=== PATIENT | male | born 1965 | race African-American/Black ===

== ENCOUNTER 2021-10-16 22:48 | Emergency (ER) | payer MEDICARE, SELFPAY ==
--- NOTE | 2021-10-16 22:56 | ED.MALEGU ---
HPI - Male Genitourinary General Chief complaint: Urogenital-Male Stated complaint: bladder infection Time Seen by Provider: 10/16/21 22:56 Source: patient History of Present Illness HPI Narrative: 55-year-old male with a history of Friedreich's ataxia with ataxia, leg weakness, distal sensory loss, decreased vision and hearing presents to the ER with a 2 week history of -- urinary retention with dribbling, incontinence, precipitating and hesitancy. for the past 1 day he has not been able to pass urine freely. -- Suprapubic pain. No fever. Onset (ago): day(s) ( Increased retention of urine is noted for the past 2 days) Relieving factors: none Exacerbating factors: none Related Data Home Medications Medication Instructions Recorded Confirmed No Home Medications 10/16/21 10/16/21 Allergies Allergy/AdvReac Type Severity Reaction Status Date / Time codeine Allergy Unknown Verified 10/16/21 23:07 Review of Systems Review of Systems: All systems reviewed & are unremarkable except as noted in HPI and below Constitutional: Constitutional: Reports as per HPI and Reports no additional constitutional complaints Eyes: Eyes: Reports as per HPI and Reports no additional eye complaints ENT: Reports system reviewed and no additional complaints, except as documented and Reports as per HPI Cardiovascular: Cardiovascular: Reports as per HPI and Reports no additional cardiovascular complaints Respiratory: Respiratory: Reports as per HPI and Reports no additional respiratory complaints Gastrointestinal: Gastrointestinal: Reports as per HPI and Reports no additional gastrointestinal complaints Genitourinary: Genitourinary: Reports oliguria, Reports urinary frequency, Reports urinary hesitancy and Reports other ( retention of urine) Musculoskeletal: Musculoskeletal: Reports no additional musculoskeletal complaints and Reports as per HPI Integumentary/Breasts: Skin/Breast: Reports system reviewed and no additional complaints, except as docu and Reports as per HPI Neurologic: Reports system reviewed and no additional complaints, except as documented, Reports dizziness, Reports frequent falls, Reports lack of coordination, Reports loss of vision, Reports restless legs, Reports Sensory deficit (Neuro), Reports tremor(s) and Reports disequilibrium Psychiatric: Psychiatric: Reports no additional psychiatric complaints Endocrine: Endocrine: Reports no additional endocrine complaints Hematologic/Lymphatic: Hematologic/Lymphatic: Reports no additional hematologic/lymphatic complaints Allergic/Immunologic: Allergic/Immunologic: Reports no additional allergic/immunologic complaints [facility] Family History Family History (Updated 10/16/21 @ 23:30 by Denys Stone MD) Other Friedreich disease Exam Const: General: cooperative, healthy appearing, anxious, tired appearing and uncomfortable HENMT: Head: normal to inspection, No palpable skull fracture present and normocephalic Ears: other ( decreased hearing) General nose exam: Normal external nose present, Normal nares present and Abnormal external nose present Face and sinus: normal facial exam Mouth: Yes Normal oral and palatal mucosa present Teeth and gingiva: dentition normal Throat: posterior oropharynx normal Eyes: General: appearance normal, both eyes and all related structures Eyelids: eyelids normal Conjunctivae: conjunctivae normal Sclera: sclerae normal Cornea: corneas normal Pupils: Equal, round and reactive pupils present Neck: Neck: normal visual inspection and full ROM Chest: Chest palpation & inspection: normal inspection of the chest and normal palpation of entire chest wall Resp: Effort & Inspection: normal respiratory effort and able to speak in complete sentences Auscultation: clear to auscultation bilaterally Cardio: Jugular venous distension: no JVD Rate: regular rate Rhythm: regular rhythm Heart sounds: S1 normal heart sound present and S2
[2021-10-16 23:00] VITALS: BP 143/89; PULSE 89; RESP 20; TEMP 36.6; O2SAT 98
[2021-10-16 23:41] LABS: Basophils Absolute Auto 0.02 K/mm3 (0.00-0.10); Basophils Percent Auto 0.2 % (0.0-1.0); Eosinophils Absolute Auto 0.02 K/mm3 (0.02-0.50); Eosinophils Percent Auto 0.2 % (1.0-6.0); Hematocrit 43.5 % (40.0-54.0); Hemoglobin 14.7 g/dL (14.0-18.0); Immature Granulocyte Absolute 0.03 K/mm3 (0.00-0.00); Immature Granulocyte Percent A 0.3 % (0.0-0.0); Lymphocytes Percent Auto 11.5 % (18.0-42.0); Mean Corpuscular HGB Conc 33.8 g/dL (32.0-36.0); Mean Corpuscular Hemoglobin 29.4 pg (27.0-31.0); Mean Platelet Volume 9.4 fl (8.7-11.0); Monocytes Absolute Auto 0.75 K/mm3 (0.10-0.90); Monocytes Percent Auto 7.2 % (2.0-11.0); Neutrophils Absolute Auto 8.4 K/mm3 (1.7-7.2); Neutrophils Percent Auto 80.6 % (50.0-70.0); Platelet Count Result 263 K/mm3 (150-420); White Blood Count 10.5 K/mm3 (4.8-10.8)
[2021-10-16 23:42] LABS: Add Urine Microscopic? YES; Appearance Urine Clear (Clear); Bilirubin Urine Negative (Negative); Blood Urine 1+ (Negative); Color Urine Light Yellow (Yellow); Glucose Urine UA Negative (Negative); Ketones Urine Negative (Negative); Leukocyte Esterase Ur Negative (Negative); Nitrate Urine Negative (Negative); Protein Urine Negative (Negative); Specific Grav Ur <= 1.005 (1.010-1.020); Urobilinogen Urine 0.2 mg/dL (0.2-1.0)
[2021-10-16 23:49] LABS: RBC Urine None seen /hpf (0-2)
[2021-10-17] LABS: Lactic Acid Reflex 1.6 mmol/L (0.4-2.0)
[2021-10-17 00:04] LABS: Alanine Aminotransferase 43 U/L (16-63); Albumin Level 4.3 g/dL (3.4-5.0); Alkaline Phosphatase 55 U/L (46-116); Anion Gap 11 mmol/L (8-16); Aspartate Amino Transferase 40 U/L (15-37); Bilirubin,Total 0.6 mg/dL (0.00-1.00); Blood Urea Nitrogen 14 mg/dL (7-18); Calcium 8.7 mg/dL (8.5-10.1); Carbon Dioxide 26 mmol/L (21-32); Chloride 101 mmol/L (98-108); Estimated CRCL calculation 75 ml/min; Estimated Glomerular Filt Rate > 60; Glucose 127 mg/dL (70-99); Lipase 63 U/L (73-393); Osmolality Calculated 288 mOsm/kg (285-295); Potassium 3.3 mmol/L (3.5-5.1); Sodium 138 mmol/L (136-145); Total Protein 7.6 g/dL (6.4-8.2)
[2021-10-17 00:07] LABS: NT Pro B Type Natriuretic Pept 46 pg/mL (0-125); Troponin I 6.7 ng/L (0.00-60.4); Uric Acid 5.9 mg/dL (3.5-7.2)
[2021-10-17] MEDS: POTASSIUM CHLORIDE 20 MEQ TABLET PO (00:17)
[2021-10-17 00:42] VITALS: BP 138/85; PULSE 80; RESP 18; TEMP 36.6; O2SAT 97
== END 2021-10-17 00:45 | disposition home or self-care (01) ==
PROVIDERS: Emergency Provider Internal Medicine Critical Care Medicine; PCP Internal Medicine
DX: G11.11 Friedreich ataxia (principal); R33.9 Retention of urine, unspecified; E87.6 Hypokalemia
CPT/HCPCS: 36415; 80053; 81001; 83605; 83690; 83880; 84484; 84550; 85025; 99284; A9270

== ENCOUNTER 2022-01-04 17:56 | Emergency (ER) | payer MEDICARE, SELFPAY ==
--- NOTE | ~2022-01-04 | CT_ITS ---
EXAMINATION: CT abdomen pelvis wo con DATE: 01/04/2022 20:44 INDICATION: left flank pain X today TECHNIQUE: Computed tomography (CT) of the abdomen and pelvis was performed without intravenous contr ast. Automated exposure control and iterative reconstruction technique were employed. The dose-length product was 255.20 mGy-cm. COMPARISON: None. FINDINGS: Lower thorax: Unremarkable Liver: Multiple low-density lesions likely represent cysts or hemangiomas. Biliary/Gallbladder: Gallbladder is normal. No bile duct dilation. Pancreas: No mass or duct dilation. Spleen: Normal. Adrenals:No mass. Kidneys: No mass, stone, or hydronephrosis. GI tract: No small or large bowel dilation. Appendix not visualized. Mesentery/Peritoneum: No ascites, mass, or free air. Paucity of abdominal fat. Retroperitoneum: No mass. Pelvis: Bladder wall thickening, likely secondary to chronic outlet obstruction from prostatomegaly. Soft Tissues: Soft tissues and body wall unremarkable. Bones: Degenerative changes. IMPRESSION: No acute abdominopelvic process. Specifically there is no evidence of left nephrolithiasis or obstruc tive uropathy. Reviewed, dictated and finalized at location K. IMPRESSION: No acute abdominopelvic process. Specifically there is no evidence of left neph rolithiasis or obstructive uropathy.
--- NOTE | 2022-01-04 18:15 | ED.ABDPAIN ---
HPI - Abdominal Pain General Chief Complaint: Urogenital-Male Stated Complaint: kidneys,pinched nerve left arm Source: patient and RN notes reviewed Mode of arrival: ambulatory ( with walker) Limitations: no limitations History of Present Illness MD elicited complaint: flank pain Pertinent past history: none Onset (ago): hour(s) (8) Pain Consistency: constant Location: L flank Severity: moderate Quality: cramping and stabbing Radiation: none Migration to: no migration Exacerbating factors: nothing Relieving factors: nothing Associated symptoms: denies other symptoms Related Data Home Medications Medication Instructions Recorded Confirmed tamsulosin 0.4 mg capsule 1 cap PO DAILY 01/04/22 01/04/22 Allergies Allergy/AdvReac Type Severity Reaction Status Date / Time codeine Allergy Unknown Verified 01/04/22 18:16 Review of Systems Review of Systems: All systems reviewed & are unremarkable except as noted in HPI and below Constitutional: Constitutional: Denies chills and Denies fever(s) Gastrointestinal: Gastrointestinal: Denies nausea and Denies vomiting PMFSH Past Medical History Medical History (Updated 01/04/22 @ 21:09 by Mikey Whittaker MD) Friedreich ataxia Surgical History Surgical History No pertinent past surgical history Family History Family History (System 10/20/21 @ 15:13 by Natalia Sheets) Other Friedreich disease Social History Social History (Updated 01/04/22 @ 18:16 by Mikey Whittaker MD) Smoking status: Never smoker Substance use: current Substance use type: marijuana Exam Const: General: healthy appearing, no acute distress and alert Nutritional Appearance: well nourished Orientation/consciousness: patient oriented x3 HENMT: Head: normal to inspection Ears: external ears normal Eyes: Conjunctivae: conjunctivae normal Pupils: Equal, round and reactive pupils present EOM: EOMs intact bilaterally Neck: Neck: normal visual inspection Resp: Effort & Inspection: normal respiratory effort Auscultation: clear to auscultation bilaterally Cardio: Rate: regular rate Rhythm: regular rhythm GI: GI Palp: Yes Soft to palpation and No Tenderness to palpation present (GI) Auscultation: normal bowel sounds Back/Spine/Pelvis: Back: CVA tenderness (left) Cervical Spine: cervical ROM normal Thoracic/Lumbar Spine: thoraco-lumbar ROM normal Skin: General skin exam: normal color Rashes: no rashes Neuro: General: patient oriented x3, moves all extremities, no focal motor deficits and CN's II-XI intact bilaterally Speech: normal speech Extrem: General: normal to inspection and no clubbing, cyanosis or edema Psych: Mental Status: mental status grossly normal Affect: normal affect Attitude: cooperative Course Vital Signs Vital signs: Vital Signs Temperature 36.9 C 01/04/22 18:16 Pulse Rate 98 01/04/22 18:16 Respiratory Rate 16 01/04/22 18:16 Blood Pressure 151/86 H 01/04/22 18:16 Pulse Oximetry 98 01/04/22 18:16 Oxygen Delivery Room Air 01/04/22 18:16 Temperature 36.4 C L 01/04/22 21:24 Pulse Rate 75 01/04/22 21:24 Respiratory Rate 16 01/04/22 21:24 Blood Pressure 143/101 H 01/04/22 21:24 Pulse Oximetry 100 01/04/22 21:24 Oxygen Delivery Room Air 01/04/22 21:24 MDM - Abdominal Pain MDM Narrative Medical decision making narrative: I considered UTI, kidney stone, musculoskeletal pain, other abdominal etiology. CT scan shows no abdominal etiology specifically no kidney stone. He had to be straight cathed for his urine and that is the most likely source of his mild hematuria Lab Data Attestation: I reviewed the patient's lab results. Result diagrams: 01/04/22 18:36 01/04/22 18:36 Labs: Lab Results 01/04/22 01/04/22 01/04/22 Range/Units 18:36 18:36 20:12 WBC 5.2 (4.8-10.8) K/mm3 RBC 4.79 (4.70-6.10) M/mm3 Hgb 1
[2022-01-04 18:16] VITALS: BP 151/86; PULSE 98; RESP 16; TEMP 36.9; O2SAT 98
[2022-01-04 18:40] LABS: Basophils Absolute Auto 0.03 K/mm3 (0.00-0.10); Basophils Percent Auto 0.6 % (0.0-1.0); Eosinophils Absolute Auto 0.03 K/mm3 (0.02-0.50); Eosinophils Percent Auto 0.6 % (1.0-6.0); Hematocrit 42.1 % (40.0-54.0); Immature Granulocyte Absolute 0.02 K/mm3 (0.00-0.00); Immature Granulocyte Percent A 0.4 % (0.0-0.0); Lymphocytes Absolute Auto 1.82 K/mm3 (1.10-4.50); Lymphocytes Percent Auto 35.3 % (18.0-42.0); Mean Corpuscular HGB Conc 33.3 g/dL (32.0-36.0); Mean Corpuscular Hemoglobin 29.2 pg (27.0-31.0); Mean Corpuscular Volume 87.9 fL (78.0-102.0); Mean Platelet Volume 9.4 fl (8.7-11.0); Monocytes Absolute Auto 0.47 K/mm3 (0.10-0.90); Monocytes Percent Auto 9.1 % (2.0-11.0); Neutrophils Absolute Auto 2.8 K/mm3 (1.7-7.2); Platelet Count Result 251 K/mm3 (150-420); Red Blood Count 4.79 M/mm3 (4.70-6.10); White Blood Count 5.2 K/mm3 (4.8-10.8)
[2022-01-04] MEDS: KETOROLAC 30 MG/ML VIAL (*BKC) IM (18:40)
--- NOTE | 2022-01-04 18:54 | PC.NURSE ---
patient provided more water to help urinate.
[2022-01-04 18:55] LABS: Alanine Aminotransferase 46 U/L (16-63); Albumin Level 3.9 g/dL (3.4-5.0); Alkaline Phosphatase 58 U/L (46-116); Anion Gap 4 mmol/L (8-16); Aspartate Amino Transferase 49 U/L (15-37); Bilirubin,Total 0.4 mg/dL (0.00-1.00); Blood Urea Nitrogen 15 mg/dL (7-18); Calcium 8.7 mg/dL (8.5-10.1); Carbon Dioxide 31 mmol/L (21-32); Chloride 104 mmol/L (98-108); Estimated Glomerular Filt Rate > 60; Glucose 83 mg/dL (70-99); Osmolality Calculated 287 mOsm/kg (285-295); Potassium 3.8 mmol/L (3.5-5.1); Sodium 139 mmol/L (136-145); Total Protein 7.3 g/dL (6.4-8.2)
[2022-01-04 19:06] LABS: CRP < 0.2 mg/dL (0.0-0.9)
--- NOTE | 2022-01-04 19:22 | PC.NURSE ---
pt unable to provide a urine sample at this time. pt has water and states that he will keep trying. this staff member informed the patient that a straight catheterization procedure can be used to obtain a urine sample. pt stated, no catheters. i don't want it. Savaged updated.
--- NOTE | 2022-01-04 19:51 | PC.NURSE ---
pt stated that he is okay to be straight catheterization in order to obtain a urine sample.
[2022-01-04 20:01] VITALS: BP 147/88; PULSE 89; RESP 16; O2SAT 100
[2022-01-04 20:14] LABS: Appearance Urine Clear (Clear); Bilirubin Urine Negative (Negative); Color Urine Yellow (Yellow); Glucose Urine UA Negative (Negative); Ketones Urine Negative (Negative); Leukocyte Esterase Ur Negative LEU/UL (Negative); Nitrate Urine Negative (Negative); Protein Urine Negative (Negative)
--- NOTE | 2022-01-04 20:14 | PC.NURSE ---
pt straight catheterized, pt tolerated well, urine sent to lab, output charted and procedure charted.
[2022-01-04 20:20] LABS: Add Urine Microscopic? YES; Bacteria Urine Trace /hpf; Blood Urine Trace-Intact (Negative); Other Sediment Urine Spermatazoa /hpf; Squamous Epithelial Cell Urine None seen /hpf (Few); WBC Urine 0-3 /hpf (0-3)
[2022-01-04 21:24] VITALS: BP 143/101; PULSE 75; RESP 16; TEMP 36.4; O2SAT 100
== END 2022-01-04 21:26 | disposition home or self-care (01) ==
PROVIDERS: Emergency Provider Emergency Medicine; PCP Internal Medicine
DX: R10.9 Unspecified abdominal pain (principal)
CPT/HCPCS: 36415; 51701; 74176; 80053; 81001; 85025; 86140; 96372; 99284; J1885

== ENCOUNTER 2022-05-28 18:07 | Observation (INO) | payer MEDICARE, SELFPAY ==
[2022-05-28] VITALS (11 sets, daily range): BP systolic 124–162; BP diastolic 76–105; PULSE 88–111; RESP 17–27; TEMP 36.7; O2SAT 93–100; BMI 20.9
--- NOTE | ~2022-05-28 | CT_ITS ---
EXAMINATION: CT abdomen pelvis wo con DATE: 05/28/2022 19:14 INDICATION: Right lower quadrant abdominal pain. TECHNIQUE: Computed tomography (CT) of the abdomen and pelvis was performed without intravenous contr ast. Automated exposure control and iterative reconstruction technique were employed. The dose-length product was 264.43 mGy-cm. COMPARISON: CT abdomen and pelvis 01/04/2022 FINDINGS: The visualized portions of the lung bases are clear without pneumonia or pleural effusion. The heart size is normal. No pericardial effusion. There is mild elevation of left hemidiaphragm. The re are cysts in the liver measuring up to 11 mm. The gallbladder, spleen, pancreas, adrenal glands, a nd kidneys are normal. There is no urolithiasis. There are no dilated loops of bowel. The appendix is not visualized. There are no pathologically enlarged lymph nodes. There is no free intraperitoneal f luid. There is severe lumbar spondylosis. IMPRESSION: 1. No etiology for the patient's symptoms. Reviewed, dictated and finalized at location A. IO MANAGER
--- NOTE | ~2022-05-28 | XR_ITS ---
EXAMINATION: XR chest 1V portable DATE: 05/28/2022 19:18 INDICATION: Shortness of breath. TECHNIQUE: A single frontal view of the chest was obtained. COMPARISON: CT abdomen and pelvis 05/28/2022 FINDINGS: The chest demonstrates clear lungs without pneumonia, pleural effusion, or pneumothorax. Th e heart size is normal. IMPRESSION: 1. No acute cardiopulmonary disease. Reviewed, dictated and finalized at location A. OL CAFETERIA COOK HEAD
--- NOTE | ~2022-05-28 | CT_ITS ---
EXAMINATION: CT brain wo con DATE: 05/28/2022 19:14 INDICATION: Tremors. TECHNIQUE: Computed tomography (CT) of the head was performed without intravenous contrast. The mA wa s adjusted according to patient size. Iterative reconstruction technique was employed. The dose-lengt h product was 605.33 mGy-cm. COMPARISON: None FINDINGS: There is no intracranial hemorrhage, acute infarction, or abnormal intracranial mass lesion . The ventricles are normal in size. The orbits are normal. There is mild mucosal thickening in the p aranasal sinuses. The mastoid air cells are normal. IMPRESSION: 1. Normal brain. Reviewed, dictated and finalized at location A. TESTAMENT PROFESSOR IMPRESSION: 1. Normal brain.
--- NOTE | 2022-05-28 18:16 | ECG_ITS ---
Measurements Intervals [place] Rate: 98 P: 74 WV: 133 QRS: 60 QRSD: 72 T: 39 QT: 326 QTc: 417 Interpretive Statements PROBABLY SINUS RHYTHM (SIGNIFICANT BASELINE ARTIFACT) POSSIBLE LEFT ATRIAL ENLARGEMENT BASELINE ARTIFACT- I, II, III, AVR, AVL, AVF, V1-V6 BORDERLINE ECG NO PREVIOUS ECG AVAILABLE FOR COMPARISON Electronically Signed On 05-29-2022 7:05:24 WEATHERIZATION INSTALLER by Charlie Doe D.O.
[2022-05-28] MEDS: SODIUM CHLORIDE 0.9% IV 1,000 ML 999 ML IV CONT ×2 (18:43→21:19)
[2022-05-28 18:46] LABS: Hematocrit 42.3 % (40.0-54.0); Hemoglobin 14.1 g/dL (14.0-18.0); Mean Corpuscular HGB Conc 33.3 g/dL (32.0-36.0); Mean Platelet Volume 10.1 fl (8.7-11.0); Platelet Count Result 181 K/mm3 (150-420); Red Blood Count 4.86 M/mm3 (4.70-6.10); Red Cell Distribution Width 12.8 % (11.6-14.4); White Blood Count 2.9 K/mm3 (4.8-10.8)
[2022-05-28 19:04] LABS: Lactic Acid Reflex 1.4 mmol/L (0.4-2.0)
--- NOTE | 2022-05-28 19:05 | PC.NURSE ---
PT IS IN CT AT THIS TIME. AND BROTHER AT BEDSIDE. WILL CONTINUE TO MONITOR.
[2022-05-28 19:13] LABS: Alanine Aminotransferase 43 U/L (16-63); Alkaline Phosphatase 54 U/L (46-116); Anion Gap 9 mmol/L (8-16); Aspartate Amino Transferase 45 U/L (15-37); Bilirubin,Total 0.4 mg/dL (0.00-1.00); Blood Urea Nitrogen 14 mg/dL (7-18); Calcium 8.4 mg/dL (8.5-10.1); Carbon Dioxide 29 mmol/L (21-32); Chloride 106 mmol/L (98-108); Estimated CRCL calculation 78 ml/min; Estimated Glomerular Filt Rate > 60; Glucose 89 mg/dL (70-99); Osmolality Calculated 297 mOsm/kg (285-295); Potassium 4.2 mmol/L (3.5-5.1); Sodium 144 mmol/L (136-145); Total Protein 7.7 g/dL (6.4-8.2); Troponin I 8.5 ng/L (0.00-60.4)
[2022-05-28 19:14] LABS: Creatine Kinase 1998 U/L (39-308); Ethanol < 3 mg/dL (0-6)
[2022-05-28 19:20] LABS: Band Neutrophils Percent 0 % (0-6); Eosinophils Percent Manual 0 % (1-6); Lymphocytes Percent Manual 52 % (18-44); Monocytes Percent Manual 14 % (3-9); Neutrophils Absolute Manual 0.98 K/mm3 (1.3-6.7); Neutrophils Percent Manual 34 % (46-73); Total Cells Counted 100
[2022-05-28 19:21] LABS: Basophils Percent Manual 0 % (0-1); Magnesium 1.9 mg/dL (1.8-2.4); Platelet Estimate Adequate (Adequate)
--- NOTE | 2022-05-28 19:53 | PC.NURSE ---
PT REPORTS HE IS FEELING BETTER POST FLUIDS. PT IS SITTING UP TALKING WITH FAMILY, LAUGHING AT THIS TIME. PT IS AWAITING RESULTS. NAD NOTED. FAMILY REMAINS AT BEDSIDE. WILL CONTINUE TO MONITOR.
--- NOTE | 2022-05-28 19:56 | PC.NURSE ---
PT CALLS OUT REPORTING HE IS HOT AND WANTS TO SIT ON SIDE OF STRETCHER, ANXIOUS. PT REPORTS SUDDEN ONSET. SIDE RAIL LET DOWN AT PT REQUEST. ERP IS NOTIFIED. NO ORDERS AT THIS TIME. WILL CONTINUE TO MONITOR.
[2022-05-28 20:18] LABS: Add Urine Microscopic? YES; Appearance Urine Clear (Clear); Bilirubin Urine Negative (Negative); Blood Urine Negative (Negative); Color Urine Yellow (Yellow); Glucose Urine UA Negative (Negative); Ketones Urine Trace (Negative); Leukocyte Esterase Ur Negative (Negative); Nitrate Urine Negative (Negative); Protein Urine Negative (Negative); Urobilinogen Urine 0.2 mg/dL (0.2-1.0)
[2022-05-28 20:23] LABS: Bacteria Urine Trace /hpf; RBC Urine 0-2 /hpf (0-2); WBC Urine 0-3 /hpf (0-3)
[2022-05-28 20:25] LABS: Amphetamine Screen Urine Negative (Negative); Barbiturate Screen Urine Negative (Negative); Benzodiazepines Screen Urine Negative (Negative); Cannabinoid Screen Urine Positive (Negative); Cocaine Screen Urine Negative (Negative); Methadone Screen Urine Negative (Negative); Opiate Screen Urine Negative (Negative); Phencyclidine Screen Urine Negative (Negative)
[2022-05-28] MEDS: LORazepam (*CRX) 0.5 MG TABLET PO (21:16)
--- NOTE | 2022-05-28 22:47 | PC.NURSE ---
PT IS GOING TO BE ADMITTED TO 203. PT AND FAMILY AWARE OF PLAN OF CARE. WILL CONTINUE TO MONITOR.
--- NOTE | 2022-05-28 23:01 | ED.GENADULT ---
HPI - General Adult General Chief complaint: Anxiety Stated complaint: ambulance Time Seen by Provider: 05/28/22 18:08 Source: patient, family, EMS and RN notes reviewed Mode of arrival: EMS Limitations: no limitations History of Present Illness complaint: generalized tremors, pt has Geovanna's ataxia and chronic muscle spasms. Onset (ago): day(s) (2) Location: upper extremity and lower extremity Radiation: non-radiation Severity: moderate Quality: other (spasms) Pain Consistency: other (minimal RLQ pain) Relieving factors: none Exacerbating factors: none Treatments prior to arrival: none Related Data Home Medications Medication Instructions Recorded Confirmed tamsulosin 0.4 mg capsule 1 cap PO DAILY 01/04/22 05/28/22 Allergies Allergy/AdvReac Type Severity Reaction Status Date / Time codeine Allergy Unknown Verified 05/28/22 18:22 Review of Systems Review of Systems: All systems reviewed & are unremarkable except as noted in HPI and below Constitutional: Constitutional: Reports no additional constitutional complaints Eyes: Eyes: Reports no additional eye complaints ENT: Reports system reviewed and no additional complaints, except as documented Cardiovascular: Cardiovascular: Reports no additional cardiovascular complaints Respiratory: Respiratory: Reports no additional respiratory complaints Gastrointestinal: Gastrointestinal: Reports no additional gastrointestinal complaints Musculoskeletal: Musculoskeletal: Reports no additional musculoskeletal complaints Integumentary/Breasts: Skin/Breast: Reports system reviewed and no additional complaints, except as docu Neurologic: Reports system reviewed and no additional complaints, except as documented Psychiatric: Psychiatric: Reports no additional psychiatric complaints Endocrine: Endocrine: Reports no additional endocrine complaints Hematologic/Lymphatic: Hematologic/Lymphatic: Reports no additional hematologic/lymphatic complaints Allergic/Immunologic: Allergic/Immunologic: Reports no additional allergic/immunologic complaints [facility] Past Medical History Medical History Friedreich ataxia Rhabdomyolysis Surgical History Surgical History No pertinent past surgical history Family History Family History Other Friedreich disease Social History Social History Smoking status: Never smoker Second hand tobacco smoke exposure: No Alcohol intake: never Substance use: current Substance use type: marijuana Lack of Transportation: No Lack of Food: Never True Current Housing: I Have Housing Concerned About Future Housing: No Difficulty Paying Gas/Electric Bills: No Difficulty Paying for Meds: No Currently Unemployed: No Education: Associate Degree Difficulty w/ Childcare or Family Care: No Spiritual care concerns: No Exam Const: General: no acute distress and well nourished Nutritional Appearance: well nourished Orientation/consciousness: patient oriented x3 Limitations: no limitations HENMT: Head: normal to inspection Ears: external ears normal, TM's normal bilaterally and EAC's normal Face/Nose/Sinus: Normal external nose present, Normal nares present, normal facial exam and sinuses nontender Face and sinus: normal facial exam and sinuses nontender Mouth: Yes Normal oral and palatal mucosa present and Yes moist mucous membranes Teeth and gingiva: dentition normal Throat: posterior oropharynx normal Eyes: Conjunctivae: conjunctivae normal Pupils: Equal, round and reactive pupils present EOM: EOMs intact bilaterally Neck: Neck: normal visual inspection, no lymphadenopathy and no meningeal signs Chest: Chest palpation & inspection: normal inspection of the chest Resp: Effort & Insp
--- NOTE | 2022-05-28 23:47 | PC.NURSE ---
DELAY IN ADMISSION DUE TO NEEDING IN PT ORDERS
[2022-05-28 23:57] LABS: SARS-CoV-2 RNA PCR Positive (Negative)
[2022-05-29] VITALS: BP 133/83; PULSE 108; RESP 18; TEMP 36.4; O2SAT 97
[2022-05-29] MEDS: SODIUM CHLORIDE 0.9% IV 1,000 ML 150 ML IV CONT ×2 (00:04→07:19)
--- NOTE | 2022-05-29 00:25 | ADMGEN ---
This patient, Cipriano Magallanes, was admitted to 2nd Floor Room 203-2. Patient/family oriented to hospital policies and general routines including ID bracelet, bed and alarms, visiting hours, pain management, procedures, bathroom and other care routines, personal items, smoking policy, room service/diet, and visiting hours. Pt notified of positive covid status and no visitor policy due to positive results, pt is visibly anxious and concerned for possibility of being exposed. Pt is aware he will be getting continuous fluids and that he will need to call for assistance when getting up. Information on how to activate the Rapid Response Team has been discussed. Patient/Family are encouraged to report perceived risks to care and to ask questions if they do not understand what they are told or what they should do.
--- NOTE | 2022-05-29 01:52 | PC.NURSE ---
pt assisted to stand for urinal use, requests sleeping pill and more anxiety medicine because he is unable to sleep, charge nurse notified, tv turned on, belongings placed in reach, call light on lap
--- NOTE | 2022-05-29 02:04 | PC.NURSE ---
Message left for Mirtha Lombardi HYDROELECTRIC POWERPLANT SUPERVISOR to return call regarding patient's request for Ativan and sleeping pill.
--- NOTE | 2022-05-29 02:52 | PC.NURSE ---
2nd message left for Yohana Lombardi NP.
--- NOTE | 2022-05-29 03:15 | PC.NURSE ---
During 3 am rounds, patient was asked whether he needed to potty, had pain, needed repositioning, water, or anything else. Patient stated he did not need anything else at this time.
--- NOTE | 2022-05-29 03:30 | PC.NURSE ---
Yohana Lombardi CLERICAL METHODS ANALYST returned call. Orders received.
[2022-05-29 04:00] VITALS: BP 128/85; PULSE 76; PULSE 93; RESP 18; TEMP 36.4; O2SAT 97
[2022-05-29 05:20] LABS: Hematocrit 37.3 % (40.0-54.0); Hemoglobin 12.2 g/dL (14.0-18.0); Mean Corpuscular HGB Conc 32.7 g/dL (32.0-36.0); Mean Corpuscular Hemoglobin 28.9 pg (27.0-31.0); Mean Corpuscular Volume 88.4 fL (78.0-102.0); Mean Platelet Volume 10.1 fl (8.7-11.0); Platelet Count Result 157 K/mm3 (150-420); Red Blood Count 4.22 M/mm3 (4.70-6.10); Red Cell Distribution Width 12.9 % (11.6-14.4); White Blood Count 3.1 K/mm3 (4.8-10.8)
[2022-05-29 05:43] LABS: Alanine Aminotransferase 40 U/L (16-63); Albumin Level 3.5 g/dL (3.4-5.0); Alkaline Phosphatase 46 U/L (46-116); Anion Gap 5 mmol/L (8-16); Aspartate Amino Transferase 45 U/L (15-37); Band Neutrophils Percent 0 % (0-6); Basophils Percent Manual 0 % (0-1); Bilirubin,Total 0.5 mg/dL (0.00-1.00); Blood Urea Nitrogen 13 mg/dL (7-18); Calcium 7.7 mg/dL (8.5-10.1); Carbon Dioxide 30 mmol/L (21-32); Chloride 109 mmol/L (98-108); Eosinophils Percent Manual 0 % (1-6); Estimated CRCL calculation 77 ml/min; Estimated Glomerular Filt Rate > 60; Glucose 89 mg/dL (70-99); Lymphocytes Absolute Manual 1.24 K/mm3 (1.1-4.5); Lymphocytes Percent Manual 40 % (18-44); Monocytes Percent Manual 13 % (3-9); Neutrophils Absolute Manual 1.45 K/mm3 (1.3-6.7); Neutrophils Percent Manual 47 % (46-73); Osmolality Calculated 297 mOsm/kg (285-295); Platelet Estimate Adequate (Adequate); Potassium 4.1 mmol/L (3.5-5.1); Sodium 144 mmol/L (136-145); Total Cells Counted 100; Total Protein 6.6 g/dL (6.4-8.2)
[2022-05-29 06:18] LABS: Creatine Kinase 2038 U/L (39-308)
[2022-05-29 08:00] VITALS: BP 131/115; PULSE 73; PULSE 83; RESP 16; TEMP 36.2; O2SAT 100
[2022-05-29 08:05] VITALS: BP 128/84; PULSE 73; RESP 16; TEMP 36.1; O2SAT 100
[2022-05-29] MEDS: ENOXAPARIN 40 MG/0.4 ML SYRINGE SUB-Q (08:25)
[2022-05-29] MEDS: PANTOPRAZOLE SOD SESQUIHYDRATE 20 MG TAB PO (08:36)
[2022-05-29] MEDS: LOPERAMIDE HCL 2 MG CAPSULE 4 MG PO (09:18)
--- NOTE | 2022-05-29 09:54 | PM.SD2 ---
Same Day Admit/Disch: HPI History of Present Illness Chief complaint: ambulance Narrative: Cipriano Magallanes is a 56 [place] [address] Emergency Room Visit Note Signed Patient: Cipriano Magallanes MR#: [id number] : 1965 Acct:[id number] Age/Sex: 56 / M ADM Date: 05/28/22 Loc: [facility]CHS-2 HPI - General Adult General Chief complaint: Anxiety Stated complaint: ambulance Time Seen by Provider: 05/28/22 18:08 Source: patient, family, EMS and RN notes reviewed Mode of arrival: EMS Limitations: no limitations History of Present Illness MD complaint: generalized tremors, pt has Geovanna's ataxia and chronic muscle spasms. Onset (ago): day(s) (2) Location: upper extremity and lower extremity Radiation: non-radiation Severity: moderate Quality: other (spasms) Pain Consistency: other (minimal RLQ pain) Relieving factors: none Exacerbating factors: none Treatments prior to arrival: none PMFSH Past Medical History Medical History Friedreich ataxia Rhabdomyolysis Surgical History Surgical History No pertinent past surgical history Family History Family History Other Friedreich disease Social History Social History Smoking status: Never smoker Second hand tobacco smoke exposure: No Alcohol intake: never Substance use: current Substance use type: marijuana Lack of Transportation: No Lack of Food: Never True Current Housing: I Have Housing Concerned About Future Housing: No Difficulty Paying Gas/Electric Bills: No Difficulty Paying for Meds: No Currently Unemployed: No Education: Associate Degree Difficulty w/ Childcare or Family Care: No Spiritual care concerns: No Comments At time as signature, I have reviewed and agree with nursing past medical, social, surgical and family history. Please see nursing chart for further information. There is no relevant family history pertinent to the presenting complaint. Same Day Admit/Disch: Med Pre-admit Medications Home Medications Medication Instructions Recorded Confirmed Type tamsulosin 0.4 mg capsule 1 cap PO DAILY 01/04/22 05/28/22 History lorazepam 0.5 mg tablet 0.5 mg PO Q6H PRN Anxiety #14 tabs 05/29/22 Rx Exam Narrative: GENERAL:Well-appearing, frail, and in no acute distress. HEAD:Normocephalic EYES: PERRLA ENT: Nares clear, no rhinorrhea or epistaxis. Mucous membranes moist. CHEST: Clear to auscultation. No respiratory distress. slight cough HEART: tachycardic Regular rate and rhythm Normal peripheral pulses. ABDOMEN: Soft, nontender, nondistended, normal active bowel sounds. EXTREMITIES: decreased range of motion. No edema. tremors noted patient inability to hold still SKIN: Warm, dry, no rash. NEURO: No focal deficits. Alert and oriented x3. 3. Const: General: cooperative DS: Data Data Completed and Pending Labs on day of discharge: Labs from last 24 hours 05/29/22 05/29/22 05/29/22 04:52 04:52 04:52 WBC 3.1 L RBC 4.22 L Hgb 12.2 L Hct 37.3 L MCV 88.4 MCH 28.9 MCHC 32.7 RDW 12.9 Plt Count 157 MPV 10.1 Immature Gran % (Auto) Not Reportable Neut % (Auto) Not Reportable Lymph % (Auto) Not Reportable Camp % (Auto) Not Reportable Eos % (Auto) Not Reportable Baso % (Auto) Not Reportable Lymph # (Auto) Not Reportable [place] # (Auto) Not Reportable Eos # (Auto) Not Reportable Baso # (Auto) Not Reportable Abs Immat Gran (auto) Not Reportable Absolute Neuts (auto) Not Reportable Absolute Nucleated RBC Not Reportable Total Counted 100 Neutrophils % (Manual) 47 Band Neutroph
--- NOTE | 2022-05-29 09:57 | PC.NURSE ---
Patient's BP elevated at 131/115 during incontinence care, but after patient sat down and was no longer nervous about his incontinence, BP returned to normal of 128/84.
--- NOTE | 2022-05-29 11:15 | PC.NURSE ---
IV discontinued in anticipation of discharge. Discharge instructions given to patient. Patient voiced understanding. Personal items sent home with patient, but cell phone grinder operator surface tool was left in the room. Patient left unit in w/c accompanied by technical proposal writer. Patient left hospital property via private vehicle.
--- NOTE | 2022-05-29 11:34 | PC.NURSE ---
Message left on 's voicemail that the cell phone software test technician is here and will be at the front end mechanic for pickup.
--- NOTE | 2022-05-31 10:16 | PC.NURSE ---
Pt states he received and understood his discharge instructions. Pt also states the care was great .
== END 2022-05-29 11:15 | disposition home or self-care (01) ==
LOC: CHSED 18:53 → CHS2ND 23:32
PROVIDERS: Nurse Practitioner Family; Admitting Provider Internal Medicine; Emergency Provider Emergency Medicine; PCP Internal Medicine; Visit Provider Internal Medicine
DX: G11.11 Friedreich ataxia (principal); M62.82 Rhabdomyolysis; F41.9 Anxiety disorder, unspecified; U07.1 COVID-19
CPT/HCPCS: 36415; 70450; 71045; 74176; 80053; 80307; 81001; 82550; 83605; 83735; 84484; 85025; 93005; 96360; 96361; 96372; 99285; A9270; G0378; J1650; J7030; U0003; U0005

== ENCOUNTER 2022-07-08 09:19 | Outpatient (CLI) | payer MEDICARE, SELFPAY ==
--- NOTE | ~2022-07-08 | MR_ITS ---
MRI of the cervical spine Clinical History: Unsteady gait, spinocerebellar ataxia Technique: Axial T2-weighted and gradient images, and sagittal T1-weighted, T2-weighted, and T2 fat-s at images were acquired. Findings: There is no fracture or subluxation of the cervical spine. Vertebral bodies maintain normal height and alignment. No focal bone marrow signal abnormality identified. At C2-C3, there is no definite disc bulge or herniation. There is probable mild osseous canal stenosi s, with preservation neural foramina. At C3-C4, there is disc osteophyte, which contribute to moderate to severe spinal canal stenosis and cord compression. There is bilateral neural foraminal narrowing. At C4-C5, disc osteophyte complex contributes to moderate to severe spinal canal stenosis and cord co mpression. There is mild left neural foraminal narrowing. At C5-C6, there is minimal disc osteophyte complex. There is probable mild canal stenosis. Neural for yfn are preserved. At C6-C7, there is no significant disc bulge or herniation. Probable mild central canal stenosis. Blanquita ral foramina are preserved. There is diffusely small caliber of the cervical spinal cord, worst at the C3-C4 and C4-C5 levels. No focal signal abnormality of the spinal cord identified. Paravertebral soft tissues are unremarkable. Impression: Diffuse small caliber the cervical spinal cord. This could reflect diffuse atrophy which can be seen in the setting of spinal cerebellar ataxia. Superimposed moderate to severe spinal canal stenosis and associated cord compression at C3-C4 and C4 -C5. Element of chronic compressive myelomalacia may also be present. Reviewed, dictated and finalized at [facility]. BEVERAGE SUPERVISOR Impression: Diffuse small caliber the cervical spinal cord. This could reflect diffuse atro phy which can be seen in the setting of spinal cerebellar ataxia. Superimposed moderate to severe spinal canal stenosis and associated cord compr ession at C3-C4 and C4-C5. Element of chronic compressive myelomalacia may also be present.
--- NOTE | ~2022-07-08 | MR_ITS ---
MRI of the brain Clinical History: Spinocerebellar ataxia, unsteady gait Technique: Axial and sagittal T1-weighted images were acquired. These were followed by axial T2-weigh boaz, diffusion weighted, gradient, and FLAIR images. Findings: There is no abnormal signal in the brain parenchyma. No acute infarct, intracranial hemorrh age, or mass lesion. Questionable minimal cerebellar atrophy. Ventricles and subarachnoid spaces otherwise are unremarkabl e. Orbits are unremarkable. Paranasal sinuses and mastoid air cells are clear. Major intracranial anjelica w voids are intact. Sagittal midline structures are intact. IMPRESSION: Questionable minimal cerebellar atrophy. No other significant findings. Reviewed, dictated and finalized at location . KEN BONER
== END 2022-07-08 09:20 | disposition home or self-care (01) ==
LOC: CHSIMG 09:21
PROVIDERS: PCP Internal Medicine; Visit Provider Student in an Organized Health Care Education/Training Program
DX: G11.8 Other hereditary ataxias (principal); R06.02 Shortness of breath; M48.02 Spinal stenosis, cervical region
CPT/HCPCS: 70551; 72141

== ENCOUNTER 2022-07-15 07:50 | Outpatient (CLI) | payer MEDICARE, SELFPAY ==
--- NOTE | ~2022-07-15 | XR_ITS ---
EXAMINATION: XR barium swallow DATE: 07/15/2022 09:16 INDICATION: Dysphagia TECHNIQUE: The patient drank thick barium. Fluoroscopy of the hypopharynx and esophagus was performed . Fluoroscopy exposure time was 0.8 minutes. The DAP for this procedure was 0.97 Gycm2. Examination w as performed as a single contrast examination due to patient stability concerns. COMPARISON: None. FINDINGS: There is no mass or stricture of the esophagus. Esophageal motility is normal. There is no hiatal hernia. There was observed gastroesophageal reflux. IMPRESSION: 1. Unremarkable esophagram. Given patient's history of worsening choking on foods, modified barium es ophagram with speech pathology should be considered. Reviewed, dictated and finalized at location L. ER HAND IMPRESSION: 1. Unremarkable esophagram. Given patient's history of worsening choking on sushil ds, modified barium esophagram with speech pathology should be considered.
--- NOTE | 2022-07-15 08:12 | ECG_ITS ---
Measurements Intervals [place] Rate: 87 P: 67 SC: 130 QRS: 70 QRSD: 90 T: 10 QT: 334 QTc: 402 Interpretive Statements SINUS RHYTHM VOLTAGE CRITERIA FOR LVH [MEETS CRITERIA IN ONE OF: R(aVL), S(V1), R(V5), R(V5/V6)+S(V1)] NONSPECIFIC T-WAVE ABNORMALITY COMPARED TO ECG 05/28/2022 19:20:54 NO SIGNIFICANT CHANGE, PREVIOUS ECG WAS OF VERY POOR QUALITY WITH BASELINE ARTIFACT Electronically Signed On 07-16-2022 14:33:51 MUSIC THERAPY SPECIALIST by Moises Parker M.D.
[2022-07-15 08:26] LABS: Add Urine Microscopic? NO; Appearance Urine Clear (Clear); Bilirubin Urine Negative (Negative); Blood Urine Negative (Negative); Color Urine Light Yellow (Yellow); Glucose Urine UA Negative (Negative); Ketones Urine Negative (Negative); Leukocyte Esterase Ur Negative (Negative); Nitrate Urine Negative (Negative); Protein Urine Negative (Negative); Urobilinogen Urine 0.2 mg/dL (0.2-1.0)
[2022-07-15 09:37] LABS: Prostate Specific Antigen 1.6 ng/mL (< OR = 4.0)
== END 2022-07-15 07:51 | disposition home or self-care (01) ==
PROVIDERS: PCP Internal Medicine; Visit Provider Family Medicine
DX: R13.10 Dysphagia, unspecified (principal); R06.02 Shortness of breath; G11.8 Other hereditary ataxias; N40.1 Benign prostatic hyperplasia with lower urinary tract symptoms; R94.31 Abnormal electrocardiogram [ECG] [EKG]
CPT/HCPCS: 36415; 74220; 81003; 84153; 93005

== ENCOUNTER 2022-07-23 09:10 | Outpatient (CLI) | payer MEDICARE, SELFPAY ==
--- NOTE | 2022-08-05 12:15 | WPDPFTINT ---
PFT Procedure Performed PFT Procedure Performed Spirometry with Pre/Post Bronchodilator Plethysmography (Lung Vol) Diffusing Cap (DLCO) Flow Vol Loop PFT Interpretation DOS: 07/23/2022 REQUESTING: Dr. 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 He developed a cramp in his side which occurred during the middle of testing and may have affected results. Spirometry: Pre bronchodilator FVC is 3.27 L, 108% predicted. Pre bronchodilator FEV1 2.98 L, 125% predicted. FEV1/ FVC ratio 91% normal. After bronchodilator, there is a 3% increase in FVC, 3.37 L, 111%. There is a 17% drop in the FEV1, 2.47 L, 103% predicted. Lung volumes: Total lung capacity is 6.62 L, 144% predicted, moderate hyperinflation. The slow vital capacity is higher with the lung volumes, 3.69 L, 121% which shows dynamic airflow obstruction. Residual volume residual 2.93 L, 178% consistent with severe air trapping. RV/TLC is 44% elevated. Raw 55%. Diffusion: DLCO 20.5, 99%. DLCO/ VA 4.12, 103%. Flow volume loop: The inspiratory loop is attenuated but not flattened. The expiratory loop relatively normal. IMPRESSION: Data was not completely reproducible due to his underlying neurologic issues. However, this shows a normal spirometry without response to bronchodilator, moderate hyperinflation and severe air trapping consistent with an obstructive process, and normal diffusion. Compared to a spirometry on 03/18/2021 at an outside facility, [facility], forced vital capacity was 3.01 L, 65% predicted with a 7% drop after bronchodilator, post bronchodilator FVC 2.8 L, 60% predicted. Pre-bronchodilator FEV1 was 3.7 L, 62% predicted, and after bronchodilator FEV1 was 1.92 L, 52% predicted, a decrease of 17% with bronchodilator. The FEV 1/FVC was 98%, normal. . Keyla Hinkle MD
== END 2022-07-23 09:11 | disposition home or self-care (01) ==
LOC: CHSCARD 09:12
PROVIDERS: PCP Internal Medicine; Visit Provider Internal Medicine
DX: G11.8 Other hereditary ataxias (principal); R94.2 Abnormal results of pulmonary function studies
CPT/HCPCS: 94060; 94726; 94729

== ENCOUNTER 2022-10-15 08:39 | Outpatient (CLI) | payer MEDICARE, SELFPAY ==
[2022-10-15 08:50] VITALS: PULSE 81; O2SAT 98
[2022-10-15 08:55] VITALS: PULSE 99; O2SAT 98
[2022-10-15 09:10] VITALS: PULSE 83; O2SAT 98
[2022-10-15 10:06] LABS: Anion Gap 5 mmol/L (8-16); Blood Urea Nitrogen 13 mg/dL (9-20); Calcium 8.6 mg/dL (8.4-10.2); Carbon Dioxide 35 mmol/L (22-30); Chloride 100 mmol/L (98-107); Estimated Glomerular Filt Rate > 60; Glucose 92 mg/dL (65-110); Potassium 3.7 mmol/L (3.4-5.0); Sodium 140 mmol/L (137-145)
[2022-10-15 10:12] LABS: Creatine Kinase 2153 U/L (55-170)
--- NOTE | 2022-10-15 11:04 | HOMEO2EVAL ---
Evaluation was performed at [facility] Home Oxygen Evaluation RC: Home Oxygen (O2) Evaluation Start: 10/15/22 11:00 Freq: Status: Active Protocol: RPE Activity Type Activity Date Activity User E-sign Co-sign Detail Recorded Client Recorded Date Recorded By Document 10/15/22 08:50 [email or web address] [id number] 10/15/22 11:04 DJO Document 10/15/22 08:55 [email or web address] [id number] 10/15/22 11:04 DJO Document 10/15/22 09:10 [email or web address] [id number] 10/15/22 11:04 DJO 10/15/22 10/15/22 10/15/22 08:50 08:55 09:10 Home O2 Evaluation [Oxygen] -Test Phase Resting Exercise Resting -Oxygen Delivery Room Air Room Air Room Air [Pulse Oximetry] -Pulse Oximetry (90-100 %) 98 98 98 [Pulse Rate] -Pulse Rate (60-100 beats/min) 81 99 83 [Evaluation] -Activity Tolerance Poor [Exercise] -Ambulation Distance (feet) 200 -Ambulation Distance (meters) 60.95 [Charges] -Treatment Charges O2 Evaluation - Outpatient
== END 2022-10-15 08:40 | disposition home or self-care (01) ==
PROVIDERS: Student in an Organized Health Care Education/Training Program; Visit Provider Internal Medicine Pulmonary Disease
DX: R25.2 Cramp and spasm (principal); R74.8 Abnormal levels of other serum enzymes; G11.8 Other hereditary ataxias; R06.09 Other forms of dyspnea
CPT/HCPCS: 36415; 80048; 82550; 94618

== ENCOUNTER 2023-01-07 11:44 | Outpatient (CLI) | payer MEDICARE, SELFPAY ==
[2023-01-07 12:35] LABS: Cholesterol 171 mg/dL (0-200); HDL Direct 47 mg/dL (40-60); LDL Cholesterol Calculated 115 mg/dL (<130); Triglycerides 46 mg/dL (0-150)
== END 2023-01-07 11:45 | disposition home or self-care (01) ==
LOC: CHSLAB 11:48
PROVIDERS: Visit Provider Internal Medicine Cardiovascular Disease
DX: G11.11 Friedreich ataxia (principal); Z13.6 Encounter for screening for cardiovascular disorders
CPT/HCPCS: 36415; 80061

== ENCOUNTER 2023-02-13 12:41 | Emergency (ER) | payer MEDICARE, SELFPAY ==
--- NOTE | ~2023-02-13 | XR_ITS ---
XR wrist RT 2V DATE: 02/13/2023 13:35 INDICATION: Fall. Pain and swelling TECHNIQUE: 4 views COMPARISON: None FINDINGS: No recent fracture or dislocation, periosteal reaction or bone destruction is detected. Nikole nt spaces are preserved. No erosive change or chondrocalcinosis. Small old chronic avulsion fractures at the medial base of the proximal phalanx of the fifth digit an d medial aspect of the base of the proximal phalanx of the second digit. IMPRESSION: Negative right wrist Probable small old cortical avulsion fractures from the medial bases of the proximal phalanges of the second and fifth digits Reviewed, dictated and finalized at location A. IMPRESSION: Negative right wrist Probable small old cortical avulsion fractures from the medial bases of the pro ximal phalanges of the second and fifth digits
--- NOTE | ~2023-02-13 | CT_ITS ---
EXAMINATION: CT brain wo con DATE: 02/13/2023 13:33 INDICATION: Patient fell today and struck the back of the head. Small laceration in the occipital are a on the left TECHNIQUE: Computed tomography (CT) of the head was performed without intravenous contrast. The mA wa s adjusted according to patient size. Iterative reconstruction technique was employed. Exam dose: 60 5.33 mGy-cm total exam DLP. COMPARISON: None FINDINGS: No intracranial mass lesion or hemorrhage or cerebrovascular accident. No midline shift or mass effect. Normal ventricular size. No subdural or epidural hematoma is detected. There is mild mucoperiosteal thickening of the right maxillary sinus. The paranasal sinuses and masto id air cells are otherwise unremarkable. No fracture or bone destruction of the cranial vault. IMPRESSION: No acute intracranial finding or skull fracture Mild mucoperiosteal thickening of the right maxilla sinus Reviewed, dictated and finalized at Location [facility]. Reviewed, dictated and finalized at location A.
--- NOTE | ~2023-02-13 | XR_ITS ---
XR shoulder LT min 2V DATE: 02/13/2023 13:34 INDICATION: Fall. Left diffuse shoulder pain TECHNIQUE: 3 views of left shoulder COMPARISON: None FINDINGS: No fracture or dislocation, periosteal reaction or bone destruction. Normal alignment at th e acromioclavicular joint and glenohumeral joint. No abnormal soft tissue calcification. IMPRESSION: Negative Reviewed, dictated and finalized at location A. IMPRESSION: Negative
--- NOTE | ~2023-02-13 | CT_ITS ---
EXAMINATION: CT cervical spine wo con DATE: 02/13/2023 13:33 INDICATION: Fall. Posterior head laceration. TECHNIQUE: Computed tomography (CT) of the cervical spine was performed without intravenous contrast. Automated exposure control and iterative reconstruction technique were employed. Exam dose: 286.28 mGy-cm total exam DLP. COMPARISON: None FINDINGS: There is straightening of the thoracic spine. C1 and C2 are normally aligned and the odontoid process is intact. No fracture or dislocation or locked facet or prevertebral soft tissue swelling is detected. There is mild to moderate degenerative disc disease throughout the cervical spine. There is prominent uncovertebral joint spurring on the left at C2-3 encroaching upon the left C3 neural foramen, with l jeni right C2-3 uncovertebral joint spurring encroaching upon the right C3 neural foramen. IMPRESSION: Moderate cervical spondylosis; no fracture or dislocation or locked facet Reviewed, dictated and finalized at [facility]. Reviewed, dictated and finalized at location A. IMPRESSION: Moderate cervical spondylosis; no fracture or dislocation or sina d facet
[2023-02-13 12:41] VITALS: BP 145/90; PULSE 82; RESP 18; TEMP 36.5; O2SAT 99
[2023-02-13 12:52] VITALS: BP 145/90; PULSE 82; RESP 18; TEMP 36.5; O2SAT 99
--- NOTE | 2023-02-13 12:58 | ED.GENADULT ---
HPI - General Adult General Chief complaint: Wound/Laceration Stated complaint: fall; head injury Time Seen by Provider: 02/13/23 12:44 Source: patient and EMS Mode of arrival: EMS History of Present Illness HPI narrative: 57-year-old male with history of cerebellar ataxia presenting following a fall. Patient states he [place] he lost his balance and fell. He states this resulted in him striking the left side of his head. He presents with a hemostatic laceration to the left scalp as well as left shoulder and right wrist pain. He denies any loss of consciousness. Onset (ago): hour(s) Location: head and upper extremity Related Data Home Medications Medication Instructions Recorded Confirmed tamsulosin 0.4 mg capsule 1 cap PO DAILY 01/04/22 02/13/23 ergocalciferol (vitamin D2) 1,250 1 unit PO WEEKLY 02/13/23 02/13/23 mcg (50,000 unit) capsule Allergies Allergy/AdvReac Type Severity Reaction Status Date / Time codeine Allergy Unknown Verified 02/13/23 12:52 [facility] Past Medical History Medical History Friedreich ataxia Rhabdomyolysis Surgical History Surgical History No pertinent past surgical history Family History Family History Other Friedreich disease Social History Social History Smoking status: Never smoker Second hand tobacco smoke exposure: No Alcohol intake: never Substance use: current Substance use type: marijuana Lack of Transportation: No Lack of Food: Never True Current Housing: I Have Housing Concerned About Future Housing: No Difficulty Paying Gas/Electric Bills: No Difficulty Paying for Meds: No Currently Unemployed: No Education: High School Diploma/GED Difficulty w/ Childcare or Family Care: No Spiritual care concerns: No Exam Const: General: cooperative and comfortable HENMT: Head: normocephalic and laceration Ears: hearing grossly normal bilaterally and external ears normal Face/Nose/Sinus: Normal external nose present and Normal nares present Face and sinus: normal facial exam and face symmetric Eyes: General: appearance normal, both eyes and all related structures Alignment and Position: alignment normal Neck: Neck: normal visual inspection and full ROM Chest: Chest palpation & inspection: normal inspection of the chest and no localized rib tenderness Resp: Effort & Inspection: normal respiratory effort and able to speak in complete sentences Cardio: Jugular venous distension: no JVD Rate: regular rate GI: Inspection: normal to inspection GI Palp: No abdominal tenderness Back/Spine/Pelvis: Back: no CVA tenderness and No back tenderness Cervical Spine: cervical ROM normal Thoracic/Lumbar Spine: thoracic and lumbar spine normal to inspection Skin: General skin exam: normal color and laceration ( Approximately a 2 cm hemostatic laceration to the left scalp) Neuro: General: patient oriented x3 and tone normal Extrem: General: full ROM Right upper extremity: full ROM Left upper extremity: full ROM Psych: Appearance: grossly normal and well kempt Course Vital Signs Vital signs: Vital Signs Temperature 36.5 C 02/13/23 12:41 Pulse Rate 82 02/13/23 12:41 Respiratory Rate 18 02/13/23 12:41 Blood Pressure 145/90 H 02/13/23 12:41 Pulse Oximetry 99 02/13/23 12:41 Oxygen Delivery Room Air 02/13/23 12:41 Temperature 36.5 C 02/13/23 12:52 Pulse Rate 82 02/13/23 12:52 Respiratory Rate 18 02/13/23 12:52 Blood Pressure 145/90 H 02/13/23 12:52 Pulse Oximetry 99 02/13/23 12:52 Oxygen Delivery Room Air 02/13/23 12:52 Procedures Laceration Laceration 1: Date: 02/13/23 Time: 14:01 Site:
[2023-02-13] MEDS: KETOROLAC 30 MG/ML VIAL (*BKC) IM (14:01)
[2023-02-13] MEDS: TETANUS,DIPHTHERIA,AC PERTUSSIS ADULT 0.5 ML (ADACEL) IM (14:01)
[2023-02-13 14:11] VITALS: BP 149/95; PULSE 77; RESP 14; O2SAT 100
== END 2023-02-13 14:12 | disposition home or self-care (01) ==
PROVIDERS: Emergency Provider Emergency Medicine
DX: S01.01XA Laceration without foreign body of scalp, initial encounter (principal); Z23 Encounter for immunization; W10.2XXA Fall (on)(from) incline, initial encounter; Y92.242 Post office as the place of occurrence of the external cause
CPT/HCPCS: 12001; 70450; 72125; 73030; 73100; 90471; 90715; 96372; 99284; J1885

== ENCOUNTER 2023-02-20 14:30 | Emergency (ER) | payer MEDICARE, SELFPAY ==
[2023-02-20 14:30] VITALS: BP 102/71; PULSE 80; RESP 17; TEMP 36.9; O2SAT 98
--- NOTE | 2023-02-20 14:51 | ED.GENADULT ---
HPI - General Adult General Chief complaint: Wound/Laceration Stated complaint: staple removal Source: patient Mode of arrival: ambulatory Limitations: no limitations History of Present Illness HPI narrative: patient is a 57-year-old male with a fall 1 week ago and got baljinder in his head that need to be removed today. There are 2 baljinder to be removed today. Onset (ago): week(s) (1) Location: head Radiation: non-radiation Relieving factors: none Exacerbating factors: none Associated symptoms: denies other symptoms Treatments prior to arrival: none Related Data Home Medications Medication Instructions Recorded Confirmed tamsulosin 0.4 mg capsule 1 cap PO DAILY 01/04/22 02/13/23 ergocalciferol (vitamin D2) 1,250 1 unit PO WEEKLY 02/13/23 02/13/23 mcg (50,000 unit) capsule Allergies Allergy/AdvReac Type Severity Reaction Status Date / Time codeine Allergy Unknown Verified 02/20/23 14:59 Review of Systems Review of Systems: All systems reviewed & are unremarkable except as noted in HPI and below Constitutional: Constitutional: Reports no additional constitutional complaints Eyes: Eyes: Reports no additional eye complaints ENT: Reports system reviewed and no additional complaints, except as documented Cardiovascular: Cardiovascular: Reports no additional cardiovascular complaints Respiratory: Respiratory: Reports no additional respiratory complaints Gastrointestinal: Gastrointestinal: Reports no additional gastrointestinal complaints Genitourinary: Genitourinary: Reports no additional male genitourinary complaints Musculoskeletal: Musculoskeletal: Reports no additional musculoskeletal complaints Integumentary/Breasts: Skin/Breast: Reports system reviewed and no additional complaints, except as docu Neurologic: Reports system reviewed and no additional complaints, except as documented Psychiatric: Psychiatric: Reports no additional psychiatric complaints Endocrine: Endocrine: Reports no additional endocrine complaints Hematologic/Lymphatic: Hematologic/Lymphatic: Reports no additional hematologic/lymphatic complaints Allergic/Immunologic: Allergic/Immunologic: Reports no additional allergic/immunologic complaints PMFSH Past Medical History Medical History Friedreich ataxia Rhabdomyolysis Surgical History Surgical History No pertinent past surgical history Family History Family History Other Friedreich disease Social History Social History Smoking status: Never smoker Second hand tobacco smoke exposure: No Alcohol intake: never Substance use: current Substance use type: marijuana Lack of Transportation: No Lack of Food: Never True Current Housing: I Have Housing Concerned About Future Housing: No Difficulty Paying Gas/Electric Bills: No Difficulty Paying for Meds: No Currently Unemployed: No Education: High School Diploma/GED Difficulty w/ Childcare or Family Care: No Spiritual care concerns: No Exam Const: General: cooperative and healthy appearing Eyes: General: appearance normal, both eyes and all related structures Neck: Neck: normal visual inspection Chest: Chest palpation & inspection: normal inspection of the chest and normal palpation of entire chest wall Resp: Effort & Inspection: normal respiratory effort and able to speak in complete sentences Auscultation: clear to auscultation bilaterally Cardio: Jugular venous distension: no JVD Palpation: normal PMI Rate: regular rate Rhythm: regular rhythm GI: Inspection: normal to inspection Auscultation: normal bowel sounds Skin: General skin exam: normal color Wounds: wounds noted ( Two baljinder in place without signs of infection of the left parietal) Hair: normal
[2023-02-20 15:35] VITALS: BP 102/71; PULSE 80; RESP 17; TEMP 36.9; O2SAT 98
== END 2023-02-20 15:37 | disposition home or self-care (01) ==
PROVIDERS: Emergency Provider Emergency Medicine
DX: Z48.02 Encounter for removal of sutures (principal)
CPT/HCPCS: 15853; 99281

== ENCOUNTER 2024-04-04 14:11 | Emergency (ER) | payer MEDICARE, SELFPAY ==
--- NOTE | ~2024-04-04 | XR_ITS ---
XR chest 1V portable Ordering provider: Denys Stone MD History: 58 years Male with . BILAT LEG EDEMA . Comparison: May 28, 1920 FINDINGS: MEDIASTINUM: The cardiac silhouette is not enlarged. LUNGS: No infiltrates, effusions or pneumothorax. OTHER: No free air under the diaphragm. IMPRESSION: No acute cardiopulmonary pathology. Reviewed, dictated and finalized at location A.
[2024-04-04 14:16] VITALS: BP 149/90; PULSE 81; RESP 20; TEMP 36.8; O2SAT 100
--- NOTE | 2024-04-04 14:27 | ED.GENADULT ---
HPI - General Adult General Chief complaint: Extremity Problem,Nontraumatic Stated complaint: feet swelling Source: patient Mode of arrival: ambulatory Limitations: no limitations History of Present Illness HPI narrative: 58-year-old male with a history of anxiety, Friedreich's ataxia, COVID positive in 2021 presents to the ED with a couple of months history of -- bilateral leg swelling. The swelling is up to his knees. Both knees are symmetrically swollen. Patient denies any chest pain or shortness of breath. The patient has been worked up for dyspnea on exertion. He has had LVH on EKG. The patient does not appear to have had a stress test or an echocardiogram. He has had evidence of cord compression at C3/4 and C4/5. patient has had a history of Friedreich's ataxia with progressive ataxia along with distal sensory loss, dysphagia. MD complaint: bilateral leg swelling Onset (ago): month(s) Location: lower extremity Severity: mild Relieving factors: none Exacerbating factors: none Associated symptoms: denies other symptoms Related Data Home Medications Medication Instructions Recorded Confirmed tamsulosin 0.4 mg capsule 1 cap PO DAILY 01/04/22 02/20/23 ergocalciferol (vitamin D2) 1,250 1 unit PO WEEKLY 02/13/23 02/20/23 mcg (50,000 unit) capsule Allergies Allergy/AdvReac Type Severity Reaction Status Date / Time codeine Allergy Unknown Verified 02/20/23 14:59 Review of Systems Review of Systems: All systems reviewed & are unremarkable except as noted in HPI and below Constitutional: Constitutional: Reports as per HPI and Reports no additional constitutional complaints Eyes: Eyes: Reports as per HPI and Reports no additional eye complaints ENT: Reports system reviewed and no additional complaints, except as documented and Reports as per HPI Cardiovascular: Cardiovascular: Reports as per HPI and Reports no additional cardiovascular complaints Comments: No shortness of breath. No paroxysmal nocturnal dyspnea. No history of palpitation Respiratory: Respiratory: Reports as per HPI and Reports no additional respiratory complaints Gastrointestinal: Gastrointestinal: Reports as per HPI and Reports no additional gastrointestinal complaints Genitourinary: Genitourinary: Reports no additional male genitourinary complaints and Reports as per HPI Comments: prior history of retention of urine. No urinary incontinence Musculoskeletal: Musculoskeletal: Reports no additional musculoskeletal complaints and Reports as per HPI Integumentary/Breasts: Skin/Breast: Reports system reviewed and no additional complaints, except as docu and Reports as per HPI Neurologic: Reports system reviewed and no additional complaints, except as documented, Reports as per HPI, Reports numbness and Reports weakness Comments: ataxia Psychiatric: Psychiatric: Reports no additional psychiatric complaints and Reports as per HPI Endocrine: Endocrine: Reports no additional endocrine complaints and Reports as per HPI Hematologic/Lymphatic: Hematologic/Lymphatic: Reports no additional hematologic/lymphatic complaints and Reports as per HPI Allergic/Immunologic: Allergic/Immunologic: Reports no additional allergic/immunologic complaints PMFSH Past Medical History Medical History Friedreich ataxia Rhabdomyolysis Surgical History Surgical History No pertinent past surgical history Family History Family History Other Friedreich disease Social History Social History Smoking status: Never smoker Second hand tobacco smoke exposure: No Alcohol intake: never Substance use: current Substance use type: marijuana Lack of Transportation: No Lack of Food: Never True Current Thierry
--- NOTE | 2024-04-04 14:50 | ECG_ITS ---
Test Date: 2024-04-04 15:03:05 Measurements Intervals [place] Rate: 66 P: 79 [place]: 128 QRS: 78 QRSD: 87 T: 85 QT: 389 QTc: 410 Interpretive Statements SINUS RHYTHM VOLTAGE CRITERIA FOR LVH NONSPECIFIC T-WAVE ABNORMALITY- HIGH LATERAL LEADS BASELINE ARTIFACT- I, II, AVR, AVL, AVF, V1-V3 BORDERLINE ECG No previous ECG available for comparison Electronically Signed On 04-04-2024 15:13:11 CDT by Charlie Doe D.O.
[2024-04-04 15:09] LABS: Basophils Absolute Auto 0.02 K/mm3 (0.00-0.10); Basophils Percent Auto 0.5 % (0.0-1.0); Eosinophils Absolute Auto 0.06 K/mm3 (0.02-0.50); Eosinophils Percent Auto 1.4 % (1.0-6.0); Hematocrit 40.4 % (40.0-54.0); Hemoglobin 13.5 g/dL (14.0-18.0); Immature Granulocyte Absolute 0.02 K/mm3 (0.00-0.00); Immature Granulocyte Percent A 0.5 % (0.0-0.0); Lymphocytes Absolute Auto 1.61 K/mm3 (1.10-4.50); Lymphocytes Percent Auto 36.9 % (18.0-42.0); Mean Corpuscular HGB Conc 33.4 g/dL (32-36); Mean Corpuscular Volume 86.7 fL (78.0-102.0); Monocytes Absolute Auto 0.39 K/mm3 (0.10-0.90); Monocytes Percent Auto 8.9 % (2.0-11.0); Neutrophils Absolute Auto 2.26 K/mm3 (1.70-7.20); Neutrophils Percent Auto 51.8 % (50.0-70.0); Platelet Count Result 229 K/mm3 (150-420); Red Blood Count 4.66 M/mm3 (4.70-6.10); Red Cell Distribution Width 13.7 % (11.6-14.4); White Blood Count 4.4 K/mm3 (4.8-10.8)
[2024-04-04 15:27] LABS: Add Urine Microscopic? YES; Appearance Urine Clear (Clear); Bilirubin Urine Negative (Negative); Blood Urine Negative (Negative); Color Urine Light Yellow (Yellow); Glucose Urine UA Negative (Negative); Ketones Urine Negative (Negative); Leukocyte Esterase Ur Negative LEU/UL (Negative); Nitrate Urine Negative (Negative); Protein Urine Negative (Negative); pH Urine 7.5 (5.0-8.0)
[2024-04-04 15:32] LABS: Bacteria Urine Trace /hpf; RBC Urine None seen /hpf (0-2); Squamous Epithelial Cell Urine Rare /hpf (Few); WBC Urine None seen /hpf (0-3)
[2024-04-04 15:34] LABS: Alanine Aminotransferase 33 U/L (16-63); Albumin Level 3.9 g/dL (3.4-5.0); Alkaline Phosphatase 71 U/L (46-116); Anion Gap 4 mmol/L (4-12); Aspartate Amino Transferase 41 U/L (15-37); Bilirubin,Total 0.4 mg/dL (0.00-1.00); Blood Urea Nitrogen 9 mg/dL (7-18); Calcium 8.3 mg/dL (8.5-10.1); Carbon Dioxide 36 mmol/L (21-32); Chloride 103 mmol/L (98-108); Estimated CRCL calculation 68 ml/min; Estimated Glomerular Filt Rate > 60; Glucose 75 mg/dL (70-99); NT Pro B Type Natriuretic Pept 136 pg/mL (0-125); Osmolality Calculated 293 mOsm/kg (285-295); Potassium 3.2 mmol/L (3.5-5.1); Sodium 143 mmol/L (136-145); Total Protein 7.6 g/dL (6.4-8.2); Troponin I 7.1 ng/L (0.00-60.4)
[2024-04-04 15:35] LABS: Creatine Kinase 1944 U/L (39-308)
[2024-04-04 15:36] LABS: Lactic Acid Reflex 1.1 mmol/L (0.4-2.0)
[2024-04-04 15:48] VITALS: BP 138/97; PULSE 68; RESP 18; O2SAT 98
== END 2024-04-04 15:53 | disposition home or self-care (01) ==
PROVIDERS: Emergency Provider Internal Medicine Critical Care Medicine; PCP Family Medicine
DX: R74.8 Abnormal levels of other serum enzymes (principal); R60.0 Localized edema
CPT/HCPCS: 36415; 71045; 80053; 81001; 82550; 83605; 83880; 84484; 85025; 93005; 99284

== ENCOUNTER 2025-06-06 14:15 | Emergency (ER) | payer MEDICARE, SELFPAY ==
--- NOTE | ~2025-06-06 | XR_ITS ---
EXAMINATION: XR knee RT 3V, 06/06/2025 14:44 CT TECHNICIAN HISTORY: Knee injury COMPARISON: No comparisons available. Findings: No acute fracture or malalignment. No significant degenerative changes. Soft tissues unremarkable. Impression: No acute fracture or malalignment. Reviewed, dictated and finalized at location P. TECHNICIAN Impression: No acute fracture or malalignment.
[2025-06-06 14:15] VITALS: BP 143/95; PULSE 88; RESP 18; TEMP 36.4; O2SAT 100
[2025-06-06] MEDS: KETOROLAC (*BKC) 60 MG/2 ML VIAL IM (14:54)
--- NOTE | 2025-06-06 15:11 | ED.LOWEXIN ---
HPI - Extremity Injury (Lower) General Chief Complaint: Extremity Injury, Lower Stated Complaint: knee injury Time Seen by Provider: 06/06/25 14:43 Source: patient and family Mode of arrival: wheelchair Limitations: physical limitation History of Present Illness HPI Narrative: This is a 59-year-old male with history of cerebellar ataxia that had a fall few days ago onto a his right knee causing pain and swelling pain level about 6/10 pain with palpation and movement no other injuries noted patient is alert oriented no fever chills no chest pain no shortness of breath. MD complaint: knee injury and fall Onset (ago): day(s) Injury: Right: knee (Pain with swelling) Type of Injury: blunt Place: home Severity: moderate Severity scale (1-10): 6 Relieving factors: cold therapy, immobilization and rest Exacerbating factors: weight bearing, movement and palpation Context: fall Associated symptoms: swelling Related Data Allergies Allergy/AdvReac Type Severity Reaction Status Date / Time codeine Allergy Unknown Verified 06/06/25 15:02 Review of Systems Review of Systems: All systems reviewed & are unremarkable except as noted in HPI and below PMFSH Past Medical History Medical History Rhabdomyolysis Friedreich ataxia Surgical History Surgical History No pertinent past surgical history Family History Family History Other Friedreich disease Social History Social History Smoking status: Never smoker Second hand tobacco smoke exposure: No Alcohol intake: never Substance use: current Substance use type: marijuana Lack of Transportation: No Lack of Food: Never True Current Housing: I Have Housing Concerned About Future Housing: No Difficulty Paying Gas/Electric Bills: No Difficulty Paying for Meds: No Currently Unemployed: No Education: High School Diploma/GED Difficulty w/ Childcare or Family Care: No Spiritual care concerns: No Exam Const: General: healthy appearing and no acute distress Nutritional Appearance: well nourished Orientation/consciousness: patient oriented x3 Limitations: physical limitations Neck: Neck: normal visual inspection and no lymphadenopathy Chest: Chest palpation & inspection: normal inspection of the chest Resp: Effort & Inspection: normal respiratory effort Auscultation: clear to auscultation bilaterally Cardio: Rate: regular rate Rhythm: regular rhythm GI: GI Palp: Yes Soft to palpation Auscultation: normal bowel sounds : General: Yes bladder normal to palpation Skin: General skin exam: normal color Rashes: no rashes Wounds: wounds noted Neuro: General: patient oriented x3 and moves all extremities Extrem: Other: Tender right anterior knee with palpation and some mild swelling Course Course Emergency Course: Medical decision making narrative: The patient was evaluated by myself in the emergency department. History obtained from the patient and family who are independent historians and physical exam performed and witnessed by nurse. X-ray performed shows no acute fractures of the right knee patient's pain level has improved with IM Toradol. Repeat assessment: Patient doing well on repeat exam with no acute distress Symptoms have improved since arrival to the emergency department after IM administration of Toradol Repeat vital stable Patient and family agree with discussion and after shared medical decision-making and agree with discharge All questions answered the patient's and family's satisfaction Advised follow-up with primary within the next 3 to 5 days. Vital Signs Vital signs: Vital Signs Temperature 36.4 C L 06/06/25 14:15 Pulse Rate 88 06/06/25 14:15 Respiratory Rate 18 06/06/25 14:15 Blood Pressure 143/95 H 06/06/25 14:15 Pulse Oximetry 100 06/06/25 14:15 Oxygen Delivery Room Air 06/06/25 14:15 Temperature 36.4 C L 06/06/25 14:15 Pulse Rate 88 06/06/25 14:15 Respiratory Rate 18 06/06/25 14:15 Blood Pressure 143/95 H 06/06/25 14:15 Pulse Oximetry 100 06/06/25 14:15 Oxygen Delivery Room Air 06/06/25 14:15 Critical Care Time Critical Care Time Critical Care Time: No Discharge Plan Discharge Clinical Impression: Right knee sprain Qualifiers: Encounter type: initial encounter Involved ligament of knee: unspecified ligament Qualified Code(s): S83.91XA - Sprain of unspecified site of right knee, initial encounter Patient Disposition: Home Condition: Stable Instructions: Antibiotic Form, Knee Sprain (ED) Additional Instructions: Advised to continue Tono wrap, can use Tylenol or Motrin as needed keep elevated can use warm compress and follow with primary if symptoms persist or worsen. Patient Language: Luxembourgish Prescriptions: No Action (DME) walker Misc See Rx Instructions .Route Qty: 1 0RF Rx Instructions: As directed (DME) IV catheter Infusion Set See Rx Instructions .Route Qty: 1 0RF Rx Instructions: Normal saline infusion 500ml, run at 250ml/hr every 2 weeks Follow-up/Referrals: Freda,Svaanna Hwoe, CUSTOM FRAMING SPECIALIST [Primary Care Provider, Unknown] Time of Disposition: 15:16
--- OUTSIDE RECORDS SUMMARY | 2025-06-06 17:28 | XMS_ITS ---
Author Organization Unknown Address [address] [place] [address] [phone] Phone Care Team Providers Care Electrical Prospecting Operator Name Role Phone CHANELLE ESPINOZA Attending Unavailable SHRUTI OAKLEY Primary Unavailable Social History Type Status Start Date End Date Code Code Syst em Smoking History Never smoker (Never Smoked) [id number] SNOMED CT Sex Male Hospital Discharge Instructions Should you have any questions prior to discharge, please contact a member of your healthcare team. If you have left the hospital and have any questions, please contact your primary care physician. Reason For Referral No Data Found Allergies and Adverse Reactions Allergy Substance Reaction Severity Start Date Concern Status Co de Code System CODEINE Rash (SNOMED-CT: 852335422), SOB (SNOMED-CT: 795180587) Active 013 RxNorm Plan of Treatment Home Sleep Study Prep (81448) 3 Encounters Encounter Diagnosis Start Date Code Code Sys tem Other hereditary ataxias 03/13/2024 [facility] MED-CT Personal Care Team Section Performer Name Performer Role Active Date Inactive Richard Sahni PCP - Primary care physician 2022-09-07
--- OUTSIDE RECORDS SUMMARY | 2025-06-06 17:28 | XMS_ITS | Clinical Summary ---
Author Organization [facility] Address [address] [place] [address] Care Team Providers Care Knockout Machine Operator Name Role Phone [facility] Primary Care P pattider Source Comments [facility] Affiliates and Associated Physician Practices is amultiple site organization consisting of ambulatory clinics and hospital sitesin [place], [place], [place] and [place]. This disclosure is being madepursuant to the Care Everywhere program and may not contain all information available regarding this patient. Last updated 18.[facility] Allergies Active Allergy Reactions Criticality Noted Date Comments Codeine 08/30/2015 Muscle cramps Medications * Be aware that medications may not be up to date on this document. Alwaysverify current medications with the patient. No known medications Social History Tobacco Use Types Packs/Day Years Used Date Smoking Tobacco: Never Alcohol Use Standard Drinks/Week Comments No 0 (1 standard drink = 0.6 oz pur e alcohol) Sex and Gender Information Value Date Recorded Sex Assigned at Not on file Legal Sex Male 6:02 AM WINDOW DRESSER Gender Identity Not on file Sexual Orientation Not on file Last Filed Vital Signs Vital Sign Reading Time Taken Comments Blood Pressure 121/80 08/30/2015 10:25 AM WINDOW DRESSER Pulse 82 08/30/2015 10:25 AM WINDOW DRESSER Temperature 36.6 C (97.8 F) 08/30/2015 10:25 AM WINDOW DRESSER Respiratory Rate 15 08/30/2015 10:25 AM WINDOW DRESSER Oxygen Saturation 100% 08/30/2015 10:25 AM WINDOW DRESSER Inhaled Oxygen Concentration - - Weight 81.7 kg (180 lb 2 oz) 08/30/2015 9:14 AM WINDOW DRESSER Height 180.3 cm (5' 11) 08/30/2015 9:14 AM WINDOW DRESSER Body Mass Index 25.12 08/30/2015 9:14 AM WINDOW DRESSER Plan of Treatment Health Maintenance Due Date Last Done Comments COLOGUARD (AGES 45-75) - COL ON CA SCREENING 1967 COLON MONITORING 1967 COLONOSCOPY - COLON CA SCREENING 1967 CT COLONOGRAPHY - COLON CA SCREENING 1967 Colorectal Cancer Screening 1967 FIT - COLON CA SCREENING 1967 FLEX SIG - COLON CA SCREENING 1967 LIPID TESTING 1967 HIV SCREENING 11/14/1982 HEPATITIS C SCREENING 11/10/1985 DTAP/TDAP/TD VACCINES (1 - Tdap) 11/14/1986 HEPATITIS B VACCINE (1 of 3 - 19+ 3-dose series) 11/14/1986 PNEUMOCOCCAL VACCINE 50+ (1 of 1 - PCV) 11/14/2017 ZOSTER VACCINE (1 of 2) 11/14/2017 DEPRESSION SCREENING 07/18/2024 COVID-19 VACCINE (1 - 2024-2 6 season) 2025 INFLUENZA VACCINE (#1) 2025 HIB VACCINE Aged Out No longer eligi ble based on patient's age to complete this topic HPV VACCINE Aged Out No longer eligi ble based on patient's age to complete this topic MENINGOCOCCAL (Group B) VACC INE SHARED DECISION-MAKING Aged Out No longer eligibl e based on patient's age to complete this topic MENINGOCOCCAL GROUPS A/C/Y/W VACCINE Aged Out No longer eligible b ased on patient's age to complete this topic Insurance MEDICARE C[employer] MEDICAID - OUT OF STATE Care Teams Knockout Machine Operator Relationship Specialty Start Date End Date [facility] [address] [place] [address] PCP - General 08/30/15
--- OUTSIDE RECORDS SUMMARY | 2025-06-06 17:28 | XMS_ITS ---
Author Organization Unknown Address [address] [place] [address] [phone] Phone Care Team Providers Care Burglar Alarm Mechanic Name Role Phone KIMBERLEY ADLER Attending Unavailable SHRUTI OAKLEY Primary Unavailable Results CT BRAIN WO CONTRAST - Compl eted: 11/28/2023 11:59 LOINC: EXAM DESCRIPTION: CT BRAIN WO CONTRAST REASON FOR STUDY: left sided weakness/ left facial droop/ difficult swallowing/ blurred vision/ hx cerebellar ataxia Duration: 4 days TECHNIQUE: Axial images acquired through the brain without intravenous contrast. Images stored on PACS. Automated mA/kV exposure control was utilized and patient examination was performed in strict accordance with principles of ALARA. COMPARISON: None FINDINGS: BRAIN: No acute intracranial hemorrhage or evidence of acute infarct. No mass effect. Mild cerebral parenchymal volume loss. EXTRA-AXIAL SPACES: No fluid collections. No masses. CALVARIUM: No acute fracture. SINUSES/MASTOIDS: Right maxillary sinus mucosal thickening. ORBITS: No significant abnormality. OTHER: No other acute findings. The findings were called to the clinical service by the operations support center staff at the time of interpretation. IMPRESSION: No acute intracranial abnormality. If there is clinical concern for acute infarct, MRI is more sensitive. THIS IS AN ELECTRONICALLY VERIFIED FINAL REPORT 11/28/2023 12:06 PM - Electronically signed by Jack Cuevas M.D., JR: Report ID: [id number] Reading Location: [id number] Social History Type Status Start Date End Date Code Code Syst em Smoking History Never smoker (Never Smoked) 740055566 SNOMED CT Sex Male Hospital Discharge Instructions [...] Co de Code System CODEINE Rash (SNOMED-CT: 615888726), SOB (SNOMED-CT: 496532518) Active 5346 RxNorm Plan of Treatment Home Sleep Study Prep (30145) 3 Encounters Encounter Diagnosis Start Date Code Code Sys tem Facial weakness 11/28/2023 SNOMED-CT Personal Care Team Section Performer Name Performer Role Active Date Inactive Richard Sahni PCP - Primary care physician 2022-09-07 Imaging Narrative Notes
--- OUTSIDE RECORDS SUMMARY | 2025-06-06 17:28 | XMS_ITS ---
Author Organization Unknown Address [address] [place] [phone] Phone Care Team Providers Care Tafe Lecturer Name Role Phone CHANELLE ESPINOZA Attending Unavailable SHRUTI OAKLEY Primary Unavailable Social History Type Status Start Date End Date Code Code Syst em Smoking History Never smoker (Never Smoked) 540393217 SNOMED CT Sex Male Hospital Discharge Instructions [...] Co de Code System CODEINE Rash (SNOMED-CT: 766176042), SOB (SNOMED-CT: 384762631) Active 8218 RxNorm Plan of Treatment Home Sleep Study Prep (45034) 3 Encounters Encounter Diagnosis Start Date Code Code Sys tem Hereditary ataxia 04/17/2024 599018462 SNOMED-CT Personal Care Team Section Performer Name Performer Role Active Date Inactive Richard Sahni PCP - Primary care physician 2022-09-07
--- OUTSIDE RECORDS SUMMARY | 2025-06-06 17:28 | XMS_ITS ---
Author Organization Unknown Address [address] [place] [address] [phone] Phone Care Team Providers Care Principal Mechanical Engineer Name Role Phone KIMBERLEY ADLER Attending Unavailable SHRUTI OAKLEY Primary Unavailable Results PSA-SCREENING - Collect Date /Time: 08/03/2023 14:38 [facility] ID: [id number] [address] [place] [address], [phone] LOINC: 2857-1 Test Value Unit Reference Range Code Code System Flag PSA SCREEN 1.6 ng/mL L=0.0 H=4.0 2857-1 LOINC Social History Type Status Start Date End Date Code Code Syst em Smoking History Never smoker (Never Smoked) 451261430 SNOMED CT Sex Male Hospital Discharge Instructions [...] Co de Code System CODEINE Rash (SNOMED-CT: 775544401), SOB (SNOMED-CT: 283683179) Active 2670 RxNorm Plan of Treatment Home Sleep Study Prep (90893) 3 Encounters Encounter Diagnosis Start Date Code Code Sys tem Encounter for screening for malignant neoplasm of prostate 08/03/2023 SNOMED-CT Personal Care Team Section Performer Name Performer Role Active Date Inactive Richard Sahni PCP - Primary care physician 2022-09-07
--- OUTSIDE RECORDS SUMMARY | 2025-06-06 17:28 | XMS_ITS ---
Author Organization Unknown Address [address] [place] [address] [phone] Phone Care Team Providers Care Auto Driver Name Role Phone CHANELLE ESPINOZA Attending Unavailable SHRUTI OAKLEY Primary Unavailable Social History Type Status Start Date End Date Code Code Syst em Smoking History Never smoker (Never Smoked) 272138036 SNOMED CT Sex Male Hospital Discharge Instructions [...] Co de Code System CODEINE Rash (SNOMED-CT: 504634862), SOB (SNOMED-CT: 892331211) Active 3611 RxNorm Plan of Treatment Home Sleep Study Prep (06159) 3 Encounters Encounter Diagnosis Start Date Code Code Sys tem Other hereditary ataxias 03/22/2024 [facility] MED-CT Personal Care Team Section Performer Name Performer Role Active Date Inactive Richard Sahni PCP - Primary care physician 2022-09-07
--- OUTSIDE RECORDS SUMMARY | 2025-06-06 17:28 | XMS_ITS ---
Author Organization Unknown Address [address] [place] [address] [phone] Phone Care Team Providers Care Hospital Cleaning Specialist Name Role Phone CHANELLE ESPINOZA Attending Unavailable SHRUTI OAKLEY Primary Unavailable Social History Type Status Start Date End Date Code Code Syst em Smoking History Never smoker (Never Smoked) 986843773 SNOMED CT Sex Male Hospital Discharge Instructions [...] Co de Code System CODEINE Rash (SNOMED-CT: 838199998), SOB (SNOMED-CT: 101948900) Active 6759 RxNorm Plan of Treatment Home Sleep Study Prep (53780) 3 Encounters Encounter Diagnosis Start Date Code Code Sys tem Other hereditary ataxias 05/24/2024 SNO MED-CT Personal Care Team Section Performer Name Performer Role Active Date Inactive Richard Sahni PCP - Primary care physician 2022-09-07
--- OUTSIDE RECORDS SUMMARY | 2025-06-06 17:28 | XMS_ITS | Clinical Summary ---
Author Organization [facility] Address [address] [place] [address] Care Team Providers Care Hydroelectric Station Operator Name Role Phone Savanna Barba NP Primary Care Provider [phone] Allergies Active Allergy Reactions Criticality Noted Date Comments Codeine Other (See comments) Low 08/18/2016 Muscle spasms Medications cyclobenzaprine (FLEXERIL) 10 mg tablet Take 10 mg by mouth. 7 Active escitalopram (LEXAPRO) 10 mg tablet Take 10 mg by mouth daily. 7 Active HYDROcodone-jorge alberto taminophen (NORCO) 5-325 mg per tabletIndicatio ns:Pain 8 Active ibuprofen (ADVIL) 200 mg tab/cap Active PARoxetine (PAXIL) 20 mg tablet daily. 6 Active prednisoLONE acetate (PRED FORTE) 1 % ophthalmic suspension 7 Active tamsulosin (FLOMAX) 0.4 mg extended release capsule Take 1 capsule (0.4 mg total) by mouth 2 times daily 7 Active diphenhydrAMINE (BENADRYL) 25 mg capsule Take 2 tablets by mouth at bedtime the night before the procedure and 2 tablets by mouth the morning of the procedure 4 tablet/capsul e 3 Active famotidine (PEPCID) 20 mg tablet Take one tablet by mouth at bedtime the night before the procedure and one tablet by mouth the morning of the procedure. 2 tablet 3 Active predniSONE (DELTASONE) 20 mg tablet Take 3 tablets by mouth at 3pm the day before the procedure, 3 tablets by mouth at bedtime the night before the procedure and 3 tablets by mouth the morning of procedure 9 tablet 3 Active Active Problems Problem Noted Date Diagnosed Date PAD (peripheral artery disease) 03/14/2023 Bilateral leg edema 03/14/2023 Proptosis, right eye 04/10/2019 Assessment & Plan (04/10/2019 8:47 AM CDT): Pt noted asymmetry over the last year, which has remained stable. Pt ed on potential etiologies, including JOSEF (TSH, T3, T4, TSIG normal range)/ +MARY ANN, + Chemosis, -EOM restriction, -Diplopia. Will obtain orbit CT + contrast within the week. Pt ed. Refraction disorder 04/10/2019 Assessment & Plan (04/10/2019 8:48 AM CDT): RTC for refraction-only 2-4 weeks Dry eye syndrome of both eyes 04/10/2019 Assessment & Plan (04/10/2019 8:50 AM CDT): Recommend OTC refresh or soothe TID + both eyes (OU) Anxiety 02/03/2016 Overview (10/28/2017): Description: Concern since early 2015. No depressive symptoms. Denies SI/HI. Denies psychotic features. Impression: In view of chronicity and severity of symptoms will start SSRI and favor paroxetine 20mg qAM. Explained to patient that he would need to start taking every day, and that associated with increased suicidality in early weeks. 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 EMG sensory/motor axonal neuropathy and some signs central ataxia on exam. Lab w/u negative. MRI with normal cerebellum. Impression: As above ataxia assessment. Round out neuropathy workup with labs. 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 Will try to obtain genetic testing for him. Therapy reyes to treatment plan and will refer to [facility] via their SW team and consider student therapy clinic. Check A1c, Vit E, Cu levels today. Spent 20 minutes explaining disease and progression and importance of avoiding falls as he is resistant to walking aids. Muscle cramps 08/21/2015 Overview (10/28/2017): Impression: Relief with baclofen prn - continue this and patient may increase the rate at which he takes prn doses. Ear ringing 08/13/2015 Medical History Medical History Date Comments Personal history of other en docrine, nutritional and metabolic disease History of hyperthyr oidism - (Added by TW Conv) Peripheral neuropathy Thyroid disease Hyperthyroidism 2003 didn't take any treatment Depression Anxiety Gonorrhea 20 years ago Family History Medical History Relation Name Comments Back Pain Father Back pain - (Ad ded by TW Conv) Gout Father Hypertension Father Breast cancer Mother Family history of malignant neoplasm of breast - (Added by TW Conv) Multiple sclerosis Mother Family hi story of multiple sclerosis - (Added by TW Conv) Breast cancer Sister Family history of malignant neoplasm of breast - (Added by TW Conv) Relation Name Status Comments Father Alive Mother Sister Alive Social History Tobacco Use Types Packs/Day Years Used Date Smoking Tobacco: Never Smokeless Tobacco: Never Tobacco Cessation:Counseling Given: No Alcohol Use Standard Drinks/Week Comments No 0 (1 standard drink = 0.6 oz pur e alcohol) Sex and Gender Information Value Date Recorded Sex Assigned at Not on file Legal Sex Male 5:26 AM PROJECT DEVELOPMENT LEADER Gender Identity Not on file Sexual Orientation Not on file Last Filed Vital Signs Vital Sign Reading Time Taken Comments Blood Pressure 137/75 03/14/2023 11:40 AM CDT Pulse 51 03/14/2023 11:40 AM CDT Temperature 36.4 C (97.6 F) 03/27/2019 12:04 PM CDT Respiratory Rate - - Oxygen Saturation - - Inhaled Oxygen Concentration - - Weight 68.6 kg (151 lb 3.2 oz) 03/14/2023 11:40 AM CDT Height 180.3 cm (5' 11) 03/14/2023 11:40 AM CDT Body Mass Index 21.09 03/14/2023 11:40 AM CDT Plan of Treatment Health Maintenance Due Date Last Done Comments Colon Cancer Screening-Colonoscopy 1967 Depression Screening 1967 Prostate Cancer Screening-PSA 1967 Hepatitis B Screening 11/14/1985 Regular Well Visit/Exam 18-64 11/14/1985 Pneumococcal vaccine <65 (1 of 2 - PCV) 11/14/1986 Zoster Vaccine (1 of 2) 11/14/2017 Influenza Vaccine (#1) 2025 2, 06/16/2021, 04/21/2020, Additional history exists DTaP/Tdap/Td Vaccine (2 - Td or Tdap) 08/10/2027 08/10/2017 Hepatitis C Screening Completed 08/13/2015 Procedures Procedure Name Priority Date/Time Associated Diagnosis Comments SERUM HEPATITIS PANEL Routine 08/13/2015 7:07 PM PROJECT DEVELOPMENT LEADER from Last 3 Months or Most Recently Relevant to Health Maintenance Results * Serum Hepatitis panel (08/13/2015 7:07 PM PROJECT DEVELOPMENT LEADER) HBV surface ag Negative NEG HISTO RICAL RESULTS HCV ab Negative NEG HISTORICAL RESULTS Comment: Interpretive Data If confirmation is required, call Laboratory Customer Service to request sample to be sent to [facility] for Hepatitis C Virus (HCV) RNA Detection and Quantitation by Real-Time Reverse Sales Representative Door To Door-PCR (RT-PCR). Current interpretive data was last revised on 2011 HBV core ab, IgM Negative NEG HIS TORICAL RESULTS Comment: Interpretive Data If test is reported as Equivocal, new sample should be drawn for testing. Current interpretive data was last revised on 2008. HAV ab, IgM Negative NEG HISTORIC AL RESULTS Comment: Interpretive Data If test is reported as Equivocal, new sample should be drawn in two weeks for testing. Current interpretive data was last revised on 2008. Serum 08/13/2015 7:07 PM PROJECT DEVELOPMENT LEADER us [facility] LAB BLOOD ORDERABLES Final R esult HISTORICAL RESULTS from Last 3 Months or Most Recently Relevant to Health Maintenance Insurance [facility] MEDICARE ADVANTAGE MEDICARE [facility] Address: [address] [address] [place] [address] [facility] MEDICARE [facility] Address: [address] [address] [place] [address] Care Teams Hydroelectric Station Operator Relationship Specialty Start Date End Date Savanna Barba NP [address] [place] [address] PCP - General Nurse Practitioner 03/07/25
--- OUTSIDE RECORDS SUMMARY | 2025-06-06 17:28 | XMS_ITS | Data Portability ---
Author Organization [facility], [facility]) Address [address] [place] [address] Care Team Providers Care Returned Goods Sorter Name Role Phone CARLOS HORNER Primary Care Provider [phone] Assessment Encounter Date Assessment Date Assessment LastModified by Organization Details LastModified Time 06/18/2022 06/18/2022 56 year old male with history of benign prostatic hyperplasia . His lower urinary tract symptoms include, incomplete emptying frequency intermittency urgency weak stream straining and nocturia. He has experienced a decreased libido. He reports previously requiring a catheter due to his enlarged prostate and was started on tamsulosin without relief of his symptoms. He also admits to not drinking enough fluids to help decrease his symptoms. His IPPS score is 35 and SANYA is 8 He has tried oral medications which have not provided symptom relief. He is considering a prostate artery embolization to treat his bothersome symptoms. We discussed the risks and benefits of a PAE in addition to the alternatives, including but not limited to TURP, REZUM and GreenLight (he wants to pursue an alternative to these due to the risk of possible adverse effects including retrograde ejaculation, etc). I believe given his symptoms he may be a candidate for a prostate artery embolization. He does need an updated PSA. I recommend he have further imaging with a ultrasound (with post void residual and prostate size) performed to further evaluate the size of the prostate. He will follow up once he has completed his imaging and discuss potential procedure planning. I encouraged fluid intake to prevent dehydration today with him and his . I spent a total of 45 minutes with the patient. The time was spent reviewing the chart ,discussing with patient and/or family and forming a treatment plan. Not available 06/18/2022 15:06:20 07/20/2022 07/20/2022 56 year old male with history of benign prostatic hyperplasia being seen to review his recent imaging and discuss treatment planning. His lower urinary tract symptoms persist despite conservative treatment options and have not changed since last visit. Unfortunately, most oral therapies cause undesired side effects including possible sexual dysfunction including poor libido and/or erectile dysfunction (which he wishes to avoid). His IPPS score is elevated and SANYA is reduced. His most recent PSA was also elevated (unchanged from last visit). I reviewed his recent imaging with him which shows an enlarged prostate with post void residual urine. He is considering a prostate artery embolization to treat his bothersome symptoms. We discussed the risks and benefits of a PAE in addition to the alternatives, including but not limited to TURP, REZUM and GreenLight (he wants to pursue an alternative to these due to the risk of possible adverse effects including retrograde ejactulation, etc). I believe given his symptoms he would be a candidate for a prostate artery embolization. He would like to move forward and treatment planning is underway. He acknowledges he does not have a prior history of hip and/or spine procedures with possible hardware implementation which may cause complications with visually assessing his vasculature. I spent a total of 45 minutes with the patient. The time was spent reviewing the chart ,discussing with patient and/or family and forming a treatment plan. [email or web address] Not available 07/20/2022 11:17:30 08/02/2023 08/02/2023 57 year old male with history of benign prostatic hyperplasia . His lower urinary tract symptoms include, incomplete emptying frequency intermittency urgency weak stream straining and nocturia. His IPPS score is 27 and SANYA is 13 He has tried oral medications which have mildly provided symptom relief. His most recent PSA was 1.6 which was completed on 06/2022. He is considering a prostate artery embolization to treat his bothersome symptoms. We discussed the risks and benefits of a PAE in addition to the alternatives, including but not limited to TURP, REZUM and GreenLight (he wants to pursue an alternative to these due to the risk of possible adverse effects including retrograde ejaculation, etc). I believe given his symptoms he may be a candidate for a prostate artery embolization. He does need an updated PSA and urinalysis. I recommend he have further imaging with a prostate MRI performed to further evaluate the size of the prostate. He will follow up once he has completed his imaging and discuss potential procedure planning. I spent a total of 45 minutes with the patient. The time was spent reviewing the chart ,discussing with patient and/or family and forming a treatment plan. Not available 08/02/2023 16:30:43 08/19/2023 08/19/2023 57-year-old male with history of benign prostatic hyperplasia due to low lower urinary tract symptoms presenting virtually to review the results of his recent prostate MRI. He continues to report lower urinary tract symptoms despite the use of tamsulosin with an IPSS score of 27. I have reviewed with him his prostate MRI displayed a prostate size of 27 cc. Unfortunately, he is not a candidate for the prostate artery embolization procedure. Wingate prostate size for the PAE procedure is 50 mL and greater. I explained to him prostatitis was discovered on his prostate MRI and advised him to complete antibiotic therapy for further treatment. I also encouraged him to follow up with the urologist for further treatment/evaluat ion of his symptoms given his ineligibility for the PAE procedure.. We will follow up with him in 1 month after completing antibiotic therapy for prostatitis. Not available 08/19/2023 10:15:55 Plan of Treatment Reminders Order Date Submit Date Provider Last Modified By Organization Details Last Modified Time Details Appointments None recorded. Lab PSA, serum or plasma 2023 024 GABRIELLA Not available 4 14:57:34 urinalysis complete, reflex culture 2023 024 GABRIELLA Not available 4 14:57:33 PSA, serum or plasma 2021 022 GABRIELLA Not available 3 05:01:28 urinalysis, complete 2021 022 GABRIELLA Not available 2 09:55:48 Referral None recorded. Procedures None recorded. Surgeries None recorded. Imaging MRI, prostate, w/wo contrast 2023 024 [facility] ([facility]) - [place], [address] [place] [address] , [address], [place], [address], 4 10:32:36 US, bladder - Please assess post void residual and prostate size 2021 022 [facility] (Radiology), [address] [place], [address], 2 09:40:19 Medication Orders Cipro 500 mg tablet 2023 024 [id number], [address], [place], [id number], 4 10:19:46 Patient TargetsNo targets recorded. Patient InstructionsNo instructions recorded. Reason for Referral None Reported. Results Created Date Observation Date Name Description Value Unit Range Abnormal Flag Note LastModifiedBy Organization Detail LastModifiedTime 06/28/20 22 06/25/2022 US, bladd er No observ ation record ed. [email or web address] [facility] [address] [place], [address], 06/28/2022 10:18:13 08/18/19 24 08/16/2023 MRI, prost ate, w/wo contr ast No observ ation record ed. [email or web address] [facility] [address] [place], [address], 08/19/2023 10:08:24 Result Notes None recorded. 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 Medical Equipment None Reported. Allergies Allergen ID Allergen Name Allergen Category Reaction Reaction Severity Criticality Documentation Date Start Date Code Code System Note Provider Name and Address Organization Details Recorded Time 7289 codeine medicatio n abdominal pain Not available low 08/30/2022 2670 RxNorm Sherin jarvis null, [place] - [facility] and 3 13:37:23 Medications Name Sig Start Date Stop Date Status Note LastModified by Organization Details LastModified Time quetiapine 25 mg tablet TAKE 1 TABLET BY MOUTH AT BEDTIME FOR SLEEP active Not Available Not Available No t Available triamcinolone acetonide 0.5 % topical cream APPLY 1 GRAM TOPICALLY TO ABDOMEN TWICE DAILY NEEDED active Not Available Not Available No t Available ibuprofen 800 mg tablet Take 1 tablet 3 times a day by oral route for 5 days. 2022 active Not Available Not Available Not Avai lable prednisone 20 mg tablet active Not Available Not Available No t Available sennosides 8.6 mg-docusate sodium 50 mg tablet Take 2 tablets every day by oral route at bedtime for 5 days. 2022 active Not Available Not Available Not Avai lable Pyridium 100 mg tablet Take 1 tablet 3 times a day by oral route for 2 days. 2022 active Not Available Not Available Not Avai lable ciprofloxacin 500 mg tablet TAKE 1 TABLET BY MOUTH EVERY 12 HOURS active Not Available Not Available No t Available amoxicillin 500 mg tablet TAKE 1 TABLET BY MOUTH THREE TIMES DAILY active Not Available Not Available No t Available famotidine 20 mg tablet TAKE 1 TABLET AT BEDTIME THE NIGHT BEFORE THE PROCEDURE AND ONE TABLET BY MOUTH THE MORNING OF THE PROCEDURE. active Not Available Not Available N ot Available tamsulosin 0.4 mg capsule TAKE 1 CAPSULE BY MOUTH DAILY active Not Available Not Available No t Available Banophen 25 mg capsule TAKE 2 CAPSULES BY MOUTH AT BEDTIME THE NIGHT BEFORE PROCEDURE AND THE MORNING OF PROCEDURE active Not Available Not Available No t Available gabapentin 100 mg capsule active Not Available Not Available Not Available ergocalcifero l (vitamin D2) 1,250 mcg (50,000 unit) capsule TAKE 1 CAPSULE BY MOUTH WEEKLY active Not Available Not Available No t Available Percocet 5 mg-325 mg tablet Take 1 tablet every 6 hours by oral route as needed for 3 days. 2022 active Not Available Not Available Not Avai lable hydroxyzine HCl 10 mg tablet TAKE 1 TABLET BY MOUTH THREE TIMES DAILY NEEDED FOR ANXIETY active Not Available Not Available No t Available Vesicare 5 mg tablet Take 1 tablet every day by oral route for 3 days. 2022 active Not Available Not Available Not Avai lable Vitals Date Recorded Body height Body mass index (BMI) Body weight Provider Name and Address Organization Details Last Updated DateTime 07/20/2022 180.34 cm 22.3 kg/m2 86244.78 g marlene long [facility] and 07/20/2022 10:07:10 Date Recorded Body height Body mass index (BMI) Body weight Heart rate Systolic And Diastolic Provider Name and Address Organization Details Last Updated DateTime 06/18/2022 180.34 cm 22.3 kg/m2 12913.78 g 78 /min 120/65 mm[Hg] marlene long [facility] 06/18/2022 11:37:52 Social History Question Answer Notes LastModified by Organizat ion Details LastModified Time Tobacco Smoking Status Never Smoker marlene long [facility], [facility] 06/18/2022 11:38:58 What Was The Date Of Your Most Recent Tobacco Screening? 08/02/2023 [email or web address] Information not available 08/02/2023 Sex: Unknown Functional Status Question Answer Note LastModified by Organization D etails LastModified Time What is your level of alcohol consumption? None [email or web address] Information not available 06/18/2022 Mental Status None recorded. Family History Nothing Reported. Medical History Condition Response Coronary Artery Disease N COPD N Clotting Disorder N Pacemaker N Anemia N Genitourinary Disease N Ulcers N Gastrointestinal Disease N Deep Vein Thrombosis N Anxiety Disorder Y Varicose Veins N Diabetes N Anticoagulation therapy N Bleeding Disorder N Hyperlipidemia N Cancer N Stroke N Asthma N Neurologic Disorder Y Hepatitis N Heart Disease N Pulmonary Embolism N Hypertension N Kidney Disease N Past Encounters Encounter ID Performer Location Encounter Start Date Encounter Closed Date Diagnosis/Indication Diagnosis SNOMED-CT Code Diagnosis ICD10 Code Diagnosis IMO Codes Diagnosis Note [id number] Dereck Martinez MD [facility] [address] [place] [address] 06/18/2022 11:17:58 06/22/2022 11:08:06 Lower urinary tract symptoms due to benign prostatic hypertrophy 5684562927 [address]40.[id number] [facility] [address] [place] [address], [place] [address] [address] 07/20/2022 10:06:29 07/20/2022 12:01:27 Lower urinary tract symptoms due to benign prostatic hypertrophy 7641794683 9101 N40.[id number] [facility] [address] [place] [address], [facility] [address] [address] 08/02/2023 15:21:24 08/02/2023 16:35:25 Lower urinary tract symptoms due to benign prostatic hypertrophy 5496501253 [address]101 N40.[id number] [facility] [address] [place] [address], [place] [address] [address] 08/19/2023 10:04:11 08/23/2023 09:51:49 Lower urinary tract symptoms due to benign prostatic hypertrophy 9523535941 9101 N40.1 Prostatitis 3611542 N41. 9 Health Concerns Section Related Observation LastModified by Organization Detai ls LastModified Time None Recorded Concern Status LastModified by Organization Details LastModified Time None Recorded Advance Directives Directive None Recorded Payers Insurance Date Sequence Insurance Name Policy Number Policy Rinaldi Covered Member ID Rinaldi Member ID Guarantor Name 12/17/2023 1 [facility] (MEDICARE REPLACEMENT/A DVANTAGE - PPO) [id number] Cipriano Magallanes [id number] Cipriano Magallanes Notes Date Note Type Note Provider Name and Address Organization Details Recorded Time 06/18/2022 text/html OA prostate historyReported by PatientHPIFor associated symptoms, patient reportsincomplete emptying of bladder,frequency,weak stream (foul),feelings of urgency,nocturia,inter mittency,decreased libido,impotence,strai day, andincontinence. For quality, patient reportssymptoms worse in the evening. For severity, patient reportsmoderate. For onset/timing, patient reportsconstantandrecu rring. For aggravating factors, patient reportscaffeine. For urinary, patient reportsipss score 35andshim score 8. For genitourinary symptoms, patient reportsprostate enlargement. For gabriella context, patient reportshas used medication (currently taking tamsulosin[place] [address], [address], [employer] [facility] and 06/21/2022 19:56:10 07/20/2022 text/html 56 yo with lower urinary tract symptoms /BPH. He has had no changes since his last visit in office. He is here to discuss the results of his ultrasound and his PSA. Sherin jones, [employer] [facility] and 07/20/2022 11:21:44 08/02/2023 text/html OA prostate historyReported by PatientHPIFor associated symptoms, patient reportsincomplete emptying of bladder,frequency,weak stream,feelings of urgency,nocturia,decre ased libido, andstraining. For severity, patient reportsmoderate. For onset/timing, patient reportsconstant. For alleviating factors, patient reportsnothing gives relief. For urinary, patient reportsipss score 27andshim score 13. For genitourinary symptoms, patient reportsprostate enlargement. For gabriella context, patient reportshas used medication tamsulosin. For quality, (symptoms worse all day around). For reported prior tests, (psa 06/2022 1.6). 57-year-old male with history of lower urinary tract symptoms due to benign prostatic hyperplasia presenting for follow-up. Was treatment planned for a prostate artery embolization procedure however he had changed his mind and wanted to pursue conservative measures. He has since tried tamsulosin which has mildly improve his symptoms. His IPSS score is now 27. He is continuing to experience urinary symptoms including nocturia, straining, intermittency and hesitation due to his enlarged prostate SANTOS TONG, INTEGRATED LOGISTICS SUPPORT MANAGER [address] [facility], [address], [address], [employer] [facility] and 08/02/2023 16:34:58 08/19/2023 text/html 57-year-old male presenting virtually to review the results of his prostate MRI. No changes since previous HPI. SANTOS TONG, INTEGRATED LOGISTICS SUPPORT MANAGER [address] [place] [employer], [place] [address], [place], [address], [employer] [facility] and 08/19/2023 10:19:49
--- OUTSIDE RECORDS SUMMARY | 2025-06-06 17:29 | XMS_ITS ---
Author Organization Unknown Address [address] [place] [phone] Phone Care Team Providers Care Paver Layer Name Role Phone KIMBERLEY ADLER Attending Unavailable SHRUTI OAKLEY Primary Unavailable Results URINALYSIS w/Microscopy/C&S if indicated - Collect Date/Time: 08/04/2023 15:27 [facility] ID: [id number] [place], [place], [phone] LOINC: 55815-0 Test Value Unit Reference Range Code Code System Flag UR SOURCE VOIDED 32782-4 LOINC COLOR YELLOW YELLOW 5778-6 LOINC CLARITY SL CLOUDY CLEAR 75874-6 LOINC SPEC GRAVITY >=1.030 1.000-1.030 5811-5 LOINC A PH 5.5 5.0 - 6.5 5803-2 LOINC LEUK EST NEGATIVE NEGATIVE 5799-2 LOINC NITRATE NEGATIVE NEGATIVE PROTEIN NEGATIVE NEGATIVE 5804-0 LOINC GLUCOSE NEGATIVE NEGATIVE 74480-9 LOINC KETONES NEGATIVE NEGATIVE 27295-2 LOINC UROBILINOGEN 0.2 NEGATIVE 5818-0 LOINC BILIRUBIN NEGATIVE NEGATIVE 29476-1 LOINC BLOOD NEGATIVE NEGATIVE 39410-9 LOINC WBC 0-2 0 - 2 34722-2 LOINC RBC 0-2 0 - 2 67625-3 LOINC EPITHELIAL FEW RARE-FEW 30276-4 LOINC BACTERIA FEW NONE SEEN 25734-5 LOINC MUCUS MANY NONE SEEN 8247-9 LOINC A YEAST NOT PRESENT NOT PRESENT 07629-9 LOINC CASTS SEE BELOW 55246-6 LOINC CRYSTALS NONE SEEN 41511-8 LOINC CULTURE? NO 8251-1 LOINC DIAGNOSIS N/A Social History Type Status Start Date End Date Code Code Syst em Smoking History Never smoker (Never Smoked) 110553185 SNOMED CT Sex Male Hospital Discharge Instructions [...] Co de Code System CODEINE Rash (SNOMED-CT: 068410686), SOB (SNOMED-CT: 201553468) Active 842 RxNorm Plan of Treatment Home Sleep Study Prep (43894) 3 Encounters Encounter Diagnosis Start Date Code Code Sys tem Frequency of micturition 08/04/2023 [facility] MED-CT Personal Care Team Section Performer Name Performer Role Active Date Inactive Richard Sahni PCP - Primary care physician 2022-09-07
--- OUTSIDE RECORDS SUMMARY | 2025-06-06 18:00 | XMS_ITS ---
Author Organization Unknown Address [address] [place] [phone] Phone Care Team Providers Care Garment Worker Name Role Phone CHANELLE ESPINOZA Attending Unavailable SHRUTI OAKLEY Primary Unavailable Social History Type Status Start Date End Date Code Code Syst em Smoking History Never smoker (Never Smoked) 127291223 SNOMED CT Sex Male Hospital Discharge Instructions [...] Co de Code System CODEINE Rash (SNOMED-CT: 442462644), SOB (SNOMED-CT: 846307419) Active 0807 RxNorm Plan of Treatment Home Sleep Study Prep (18776) 3 Encounters Encounter Diagnosis Start Date Code Code Sys tem Other hereditary ataxias 05/24/2024 [facility] MED-CT Personal Care Team Section Performer Name Performer Role Active Date Inactive Richard Sahni PCP - Primary care physician 2022-09-07
--- OUTSIDE RECORDS SUMMARY | 2025-06-06 18:00 | XMS_ITS ---
Author Organization Unknown Address [address] [place] [phone] Phone Care Team Providers Care Bankruptcy Paralegal Name Role Phone KIMBERLEY ADLER Attending Unavailable [...] by Jack Cuevas M.D., JR: Report ID: [id number] Reading Location: [id number] Social History Type Status Start Date End Date Code Code Syst em Smoking History Never smoker (Never Smoked) 586818796 SNOMED CT Sex Male Hospital Discharge Instructions [...] Co de Code System CODEINE Rash (SNOMED-CT: 353324431), SOB (SNOMED-CT: 168161923) Active 7502 RxNorm Plan of Treatment Home Sleep Study Prep (69979) 3 Encounters Encounter Diagnosis Start Date Code Code Sys tem Facial weakness 11/28/2023 SNOMED-CT Personal Care Team Section Performer Name Performer Role Active Date Inactive Richard Sahni PCP - Primary care physician 2022-09-07 Imaging Narrative Notes
--- OUTSIDE RECORDS SUMMARY | 2025-06-06 18:00 | XMS_ITS | Clinical Summary ---
Author Organization [facility] Address [address] [place] [address] Care Team Providers Care Chief Of Vital Statistics Name Role Phone [facility] P pattider Source Comments [facility],non[facility] Affiliates and Associated Physician Practices is amultiple site organization consisting of ambulatory clinics and hospital sitesin [place] and [place]. This disclosure is being madepursuant to the Care Everywhere program and may not contain all information available regarding this patient. Last updated 18.[facility] Allergies Active Allergy Reactions Criticality Noted Date [...] on file Legal Sex Male 6:02 AM ENVELOPE [employer] Gender Identity Not on file Sexual Orientation Not on file Last Filed Vital Signs Vital Sign Reading Time Taken Comments Blood Pressure 121/80 08/30/2015 10:25 AM ENVELOPE MAKER Pulse 82 08/30/2015 10:25 AM ENVELOPE MAKER Temperature 36.6 C (97.8 F) 08/30/2015 10:25 AM ENVELOPE MAKER Respiratory Rate 15 08/30/2015 10:25 AM ENVELOPE MAKER Oxygen Saturation 100% 08/30/2015 10:25 AM ENVELOPE MAKER Inhaled Oxygen Concentration - - Weight 81.7 kg (180 lb 2 oz) 08/30/2015 9:14 AM ENVELOPE MAKER Height 180.3 cm (5' 11) 08/30/2015 9:14 AM ENVELOPE MAKER Body Mass Index 25.12 08/30/2015 9:14 AM [employer]OPE [employer] Plan of Treatment Health Maintenance Due Date [...] MEDICAID - OUT OF STATE Care Teams Chief Of Vital Statistics Relationship Specialty Start Date End Date [facility] [address] [place] [address] PCP - General 08/30/15
--- OUTSIDE RECORDS SUMMARY | 2025-06-06 18:01 | XMS_ITS | Patient Health Record ---
Author Organization E [facility] Address [address] [place] [phone] Care Team Providers Care Conference Organizer Name Role Phone Adrianne Jimenez Primary Care Provider Allergies Allergen (clinical drug ingredient) Drug/Non Drug Allergy documented on EMR Reaction Allergy Type Onset Date Status Codeine Phosphate Unknown Drug Allergy Active Reason For Referral No Information Social History Tobacco Use: Social History Observation Description Date Details (start date - stop date) Never Smoker NA - NA Sex Assigned At : Social History Observation Description Sex Assigned At Male Smoking Question Answer Notes Are you a: never smoker PTSD Screening Question Answer Notes Repeated, disturbing memorie s, thoughts, or images of the stressful experience from the past? Not at all Feeling very upset when some thing reminded you of the stressful experience from the past? Not at all Avoiding activities or situa tions because they reminded you of the stressful experience from the past? Not at all Feeling distant or cut off from other people? No t at all Feeling irritable or having angry outbursts? Not at all Having difficulty concentrating? Not at all Total Score 6 Interpretation Negative (0-13) PRAPARE Question Answer Notes Date Completed/Updated: 08/01/2020 What is your current housing situation? I have h ousing Are you worried about losing your housing? No What is the highest level of school that you have finished? High school diploma or GED What is your current work situation? Oth erwise unemployed but not seeking work (ex. student, retired, disabled, unpaid primary healthcare or medical) In the past year, have you o r any family members you live with been unable to get any of the following when it was really needed? Check all that apply I do not have problems meeting my needs Has lack of transportation k ept you from medical appointments, meetings, work or from getting things needed for daily living? No How often do you see or talk to people that you care about and feel close to? (For example: talking to friends on the phone, visiting friends or family, going to yarsanism or club meetings) More than 5 times a week How stressed are you? Stress is when someone feels tense, nervous, anxious, or can't sleep at night because their mind is troubled Somewhat In the past year have you sp ent more than 2 nights in a row in a prison, alf, nursing home center, or juvenile correctional facility? No Are you a refugee? No What country are you from? [place] Do you feel physically and e motionally safe where you currently live? Yes In the past year, have you b een afraid of your partner or ex-partner? No PRAPARE Score: 5 SBIRT (2018 Edition) Question Answer Notes Patient refused/declined SBIRT screening at this time? No 1. How often do you have a drink containing alco hol? Never 3. How often do you have five or more drinks on one occasion? Never SCORE 0 Interpretation Negative How many times in the past y ear have you used an illegal drug or used a prescription medication for non-medical reasons? 1 or more Total Count 2 blunts Interpretation Positive Functional Status Question Answer Notes Date of last completed Functional Status Assessm ent: 01/28/2021 Section Notes: verified by schuyler chan verified by schuyler chan verified by schuyler chan verified by schuyler chan verified by schuyler chan verified by schuyler chan verified by schuyler chan Problems Problem Type SNOMED Code ICD Code Onset Dates Problem Status W/U Status Risk Notes Problem Anxiety (63494095) Anxiety (F41.9) Active confirmed Problem Nondependent cannabis abuse (166201929) Cannabis use, unspecified, uncomplicated (F12.90) Active confirmed Problem Recurrent falls (250548602) Frequent falls (R29.6) Active confirmed Problem Unsteady gait (07657347) Unsteady gait (R26.81) Active confirmed Problem Mixed incontinence (848073755) Mixed stress and urge urinary incontinence (N39.46) Active confirmed Problem Mild major depression, single episode (90322087) Depression, major, single episode, mild (F32.0) Active confirmed Problem Somnolence (01727187) Has daytime drowsiness (R40.0) Active confirmed Problem Incontinence of feces (45752169) Incontinence of feces, unspecified fecal incontinence type (R15.9) Active confirmed Problem 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) Cerebellar ataxia (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.9) Active confirmed Plan Of Treatment Pending Test Test Name Order Date FOBT-(Hemocult) 08/01/2020 Insurance Providers Payer Name Payer Address Payer Phone Subscriber Number Group Number Insured Name Patient Relationship to Insured Coverage Start Date Coverage End Date [facility] [address] [place] [address] [id number] Cipriano Magallanes Self - patient is the insured [place] [employer] [place] [employer] [place] [employer] Att[employer] Claims [address] [place] [address] [id number] Cipriano Magallanes Self - patient is the insured Medical (General) History Medical History History ICD Code Cerebella Ataxia III Surgical History Surgery Date(Month/Year) Colonoscopy 2003
--- OUTSIDE RECORDS SUMMARY | 2025-06-06 18:01 | XMS_ITS ---
Author Organization Unknown Address [address] [place] [phone] Phone Care Team Providers Care School Traffic Guard Name Role Phone CHANELLE ESPINOZA Attending Unavailable SHRUTI OAKLEY Primary Unavailable Social History Type Status Start Date End Date Code Code Syst em Smoking History Never smoker (Never Smoked) 553744705 SNOMED CT Sex Male Hospital Discharge Instructions [...] Co de Code System CODEINE Rash (SNOMED-CT: 411647406), SOB (SNOMED-CT: 412183158) Active 7431 RxNorm Plan of Treatment Home Sleep Study Prep (19349) 3 Encounters Encounter Diagnosis Start Date Code Code 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
--- OUTSIDE RECORDS SUMMARY | 2025-06-06 18:01 | XMS_ITS | Clinical Summary ---
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 Gender Identity Not on file Sexual Orientation [...] SERUM HEPATITIS PANEL Routine 08/13/2015 7:07 PM PICKED EDGE SEWING MACHINE OPERATOR from Last 3 Months or Most Recently Relevant to Health Maintenance Results * Serum Hepatitis panel (08/13/2015 7:07 PM PICKED EDGE SEWING MACHINE OPERATOR) HBV surface ag Negative NEG HISTO RICAL RESULTS HCV ab Negative NEG HISTORICAL RESULTS Comment: Interpretive Data If confirmation is required, call Laboratory Customer Service to request sample to be sent to [facility] for Hepatitis C Virus (HCV) RNA Detection and Quantitation by Real-Time Reverse Tailer Out-PCR (RT-PCR). Current interpretive data was last revised [...] revised on 2008. Serum 08/13/2015 7:07 PM PICKED EDGE SEWING MACHINE OPERATOR us [facility] BLOOD ORDERABLES Final R esult HISTORICAL RESULTS from Last 3 Months or Most Recently Relevant to Health Maintenance Insurance [facility] MEDICARE ADVANTAGE MEDICARE [facility] Address: [address] [address] [place] [address] [facility] MEDICARE ADVANTAGE Care Teams Carbonizer Tester Relationship Specialty Start Date End Date Savanna Barba NP [address] [place] [address] PCP - General Nurse Practitioner 03/07/25
--- OUTSIDE RECORDS SUMMARY | 2025-06-06 18:01 | XMS_ITS ---
Author Organization Unknown Address [address] [place] [phone] Phone Care Team Providers Care Environmental Technician Name Role Phone KIMBERLEY ADLER Attending Unavailable SHRUTI OAKLEY Primary Unavailable Results URINALYSIS w/Microscopy/C&S if indicated - Collect Date/Time: 08/04/2023 15:27 [facility] ID: [id number] [place], [place], [phone] LOINC: 48935-1 Test Value Unit Reference Range Code Code System Flag UR SOURCE VOIDED 68586-7 LOINC COLOR YELLOW YELLOW 5778-6 LOINC CLARITY SL CLOUDY CLEAR 70150-8 LOINC SPEC GRAVITY >=1.030 1.000-1.030 5811-5 LOINC A PH 5.5 5.0 - 6.5 5803-2 LOINC LEUK EST NEGATIVE NEGATIVE 5799-2 LOINC NITRATE NEGATIVE NEGATIVE PROTEIN NEGATIVE NEGATIVE 5804-0 LOINC GLUCOSE NEGATIVE NEGATIVE 42585-4 LOINC KETONES NEGATIVE NEGATIVE 91103-3 LOINC UROBILINOGEN 0.2 NEGATIVE 5818-0 LOINC BILIRUBIN NEGATIVE NEGATIVE 90152-4 LOINC BLOOD NEGATIVE NEGATIVE 07162-7 LOINC WBC 0-2 0 - 2 29061-1 LOINC RBC 0-2 0 - 2 69218-9 LOINC EPITHELIAL FEW RARE-FEW 60541-9 LOINC BACTERIA FEW NONE SEEN 01461-2 LOINC MUCUS MANY NONE SEEN 8247-9 LOINC A YEAST NOT PRESENT NOT PRESENT 41376-9 LOINC CASTS SEE BELOW 08761-9 LOINC CRYSTALS NONE SEEN 06638-6 LOINC CULTURE? NO 8251-1 LOINC DIAGNOSIS N/A Social History Type Status Start Date End Date Code Code Syst em Smoking History Never smoker (Never Smoked) 317600770 SNOMED CT Sex Male Hospital Discharge Instructions [...] Co de Code System CODEINE Rash (SNOMED-CT: 744222651), SOB (SNOMED-CT: 475510921) Active 445 RxNorm Plan of Treatment Home Sleep Study Prep (90654) 3 Encounters Encounter Diagnosis Start Date Code Code Sys tem Frequency of micturition 08/04/2023 [facility]-CT Personal Care Team Section Performer Name Performer Role Active Date Inactive Richard Sahni PCP - Primary care physician 2022-09-07
--- OUTSIDE RECORDS SUMMARY | 2025-06-06 18:01 | XMS_ITS ---
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
--- OUTSIDE RECORDS SUMMARY | 2025-06-06 18:01 | XMS_ITS ---
Author Organization Unknown Address [address] [place] [phone] Phone Care Team Providers Care Family Consumer Science Teacher Name Role Phone KIMBERLEY ADLER Attending Unavailable SHRUTI OAKLEY Primary Unavailable Results PSA-SCREENING - Collect Date /Time: 08/03/2023 14:38 [facility] ID: [id number] [address] [place] [address], [id number] LOINC: 2857-1 Test Value Unit Reference Range Code Code System Flag PSA SCREEN 1.6 ng/mL L=0.0 H=4.0 2857-1 LOINC Social History Type Status Start Date End Date Code Code Syst em Smoking History Never smoker (Never Smoked) 869571026 SNOMED CT Sex Male Hospital Discharge Instructions [...] Co de Code System CODEINE Rash (SNOMED-CT: 992128629), SOB (SNOMED-CT: 372329389) Active 2670 RxNorm Plan of Treatment Home Sleep Study Prep (67472) 3 Encounters Encounter Diagnosis Start Date Code Code Sys tem Encounter for screening for malignant neoplasm of prostate 08/03/2023 SNOMED-CT Personal Care Team Section Performer Name Performer Role Active Date Inactive Richard Sahni PCP - Primary care physician 2022-09-07
--- OUTSIDE RECORDS SUMMARY | 2025-06-06 18:01 | XMS_ITS ---
Author Organization Unknown Address [address] [place] [phone] Phone Care Team Providers Care Robotics Testing Technician Name Role Phone CHANELLE ESPINOZA Attending Unavailable SHRUTI OAKLEY Primary Unavailable Social History Type Status Start Date End Date Code Code Syst em Smoking History Never smoker (Never Smoked) 514750215 SNOMED CT Sex Male Hospital Discharge Instructions [...] Co de Code System CODEINE Rash (SNOMED-CT: 625464261), SOB (SNOMED-CT: 405720589) Active 8313 RxNorm Plan of Treatment Home Sleep Study Prep (47933) 3 Encounters Encounter Diagnosis Start Date Code Code Sys tem Other hereditary ataxias 03/22/2024 [facility] MED-CT Personal Care Team Section Performer Name Performer Role Active Date Inactive Richard Sahni PCP - Primary care physician 2022-09-07
== END 2025-06-06 15:17 | disposition home or self-care (01) ==
PROVIDERS: Emergency Provider Emergency Medicine; PCP Nurse Practitioner Family
DX: S83.91XA Sprain of unspecified site of right knee, initial encounter (principal); W19.XXXA Unspecified fall, initial encounter
CPT/HCPCS: 73562; 96372; 99283; J1885